=== PATIENT | male | born 1995 | race Two or more races ===

== ENCOUNTER 2017-07-21 19:16 | Inpatient (IN) | payer MEDICAID ==
[2017-07-21] MEDS ORDERED: NS 1,000 ML IV ONE (20:58)
[2017-07-21] MEDS ORDERED: ONDANSETRON 4 MG/2 ML VIAL IVP ONE (20:58)
[2017-07-21 21:18] LABS: % IMMATURE GRANULYOCYTES 0.6 % (0.0-1.1); ABSOLUTE IMMATURE GRANULOCYTES 0.03 10^3/uL (0.00-0.10); ADD DIFF? NO; ADD MORPH? NO; ADD SCAN? NO; ATYPICAL LYMPHOCYTE FLAG 10 (0-99); FRAGMENT RBC FLAG 0 (0-99); HEMATOCRIT 34.5 % (40.0-51.0); HEMOGLOBIN 11.7 g/dL (13.7-17.5); LEFT SHIFT FLG 20 (0-99); LIPEMIA HEMOLYSIS FLAG 90 (0-99); MEAN CELL HEMOGLOBIN 28.7 pg (27.9-34.1); MEAN CELL HEMOGLOBIN CONCENTR. 33.9 g/dL (32.4-36.7); MEAN CELL VOLUME 84.8 fL (81.5-99.8); MEAN PLATELET VOLUME 10.5 fL (8.7-11.7); PLATELET CLUMPS FLAG 0 (0-99); PLATELET COUNT 152 10^3/uL (150-400); RED BLOOD CELL COUNT 4.07 10^6/uL (4.40-6.38); RED CELL DISTRIBUTION WIDTH 11.7 % (11.5-15.2)
[2017-07-21 21:30] LABS: ALANINE AMINOTRANSFERASE 27 IU/L (21-72); ALBUMIN 2.4 g/dL (3.5-5.0); ALKALINE PHOSPHATASE 50 IU/L (38-126); ANION GAP 10 mEq/L (8-16); ASPARTATE AMINOTRANSFERASE 23 IU/L (17-59); BILIRUBIN,TOTAL 0.4 mg/dL (0.1-1.4); BILIRUBIN-CONJUGATED 0.2 mg/dL (0.0-0.5); BILIRUBIN-UNCONJUGATED 0.2 mg/dL (0.0-1.1); CALCIUM 7.9 mg/dL (8.5-10.4); CARBON DIOXIDE 14 mEq/l (22-31); CHLORIDE 111 mEq/L (97-110); CREATININE 6.6 mg/dL (0.7-1.3); GLOMERULAR FILTRATION RATE 11; GLUCOSE 88 mg/dL (70-100); SODIUM 135 mEq/L (134-144); TOTAL PROTEIN 5.1 g/dL (6.3-8.2)
--- NOTE | 2017-07-21 21:50 | EDPHY ---
H & P Time Seen by Provider: 07/21/17 20:41 HPI/ROS: CHIEF COMPLAINT: Nausea, vomiting, lupus flare, joint swelling HISTORY OF PRESENT ILLNESS: 21-year-old male with a history of lupus since middle school presents emergency department reporting that for the last week he has had a flare of his lupus. He tells me that he typically gets headaches, abdominal discomfort, nausea, and vomiting as well as joint swelling when his lupus flares. He currently is not on any medications other than lisinopril and hydrochlorothiazide for hypertension. Patient denies any eye diarrhea, fevers, urinary complaints, chest pain, shortness of breath, illicit drug use, smoking, or alcohol use. REVIEW OF SYSTEMS: Aside from elements discussed in the HPI, a comprehensive 10-point review of systems was reviewed and is negative. PAST MEDICAL HISTORY: Lupus SOCIAL HISTORY: Nonsmoker. VITAL SIGNS Reviewed by me. GENERAL: Well-developed, well-nourished, resting comfortably in no respiratory distress. HEENT: Atraumatic. Eyes: No icterus, no injection. Mouth: moist mucous membranes. No erythema or lesions. Neck: supple with no adenopathy. LUNGS: Clear to auscultation bilaterally, no wheezes, rhonchi or rales. CARDIAC: Regular rate and rhythm, no rubs, murmurs or gallops. ABDOMEN: Soft, nontender, nondistended, bowel sounds normal. BACK: No CVA tenderness. EXTREMITIES: No trauma. No edema. Range of motion is normal throughout. No obvious swelling about the knees. NEURO: Alert and oriented, grossly nonfocal. SKIN: Warm and dry, no rash. PSYCHIATRIC: Normal mentation, no agitation. Smoking Status: Never smoked Constitutional: Initial Vital Signs Temperature (C) 37 C 07/21/17 19:58 Heart Rate 77 07/21/17 19:58 Respiratory Rate 18 07/21/17 19:58 Blood Pressure 160/94 H 07/21/17 19:58 O2 Sat (%) 100 07/21/17 19:58 O2 Delivery Mode Room Air Allergies/Adverse Reactions: No Known Allergies Allergy (Unverified 07/21/17 19:57) Home Medications: Medication Instructions Recorded Lisinopril/Hctz 10/12.5 mg 07/21/17 Medical Decision Making - Diagnostics EKG Interpretation: 12-LEAD EKG: Please see the full report in Trace Master. My interpretation: Sinus rhythm, ?peaked T waves V3 ED Course/Re-evaluation: 21-year-old male with a history of lupus presents with what he describes as lupus flare characterized by headache, nausea, and joint swelling. Patient had IV placed. Laboratory evaluation is remarkable for a creatinine of 6.6, BUN of 124, potassium of 6.0. On further discussions with the patient he tells me that he has had creatinines as high as 4.4 in the past, but after treatment, typically resolves to the normal range. Patient will be admitted to the medicine service. Dr. Dariusz Marino was consulted. I will also speak to Nephrology. 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 Evaluate and treat as acute renal failure. Would not start high-dose steroids at this point. Differential Diagnosis: Differential diagnoses for the patient's symptom complex was considered including but not limited to dehydration, renal failure, lupus nephritis, gastroenteritis, occult infection. Consult/Admit Bed Type: Dr Marino, [facility] - Data Points Laboratory Results: Laboratory Results 07/21/17 21:10 07/21/17 21:10 07/21/17 07/21/17 21:10 21:10 WBC 5.38 10^3/uL 10^3/uL (3.80-9.50) RBC 4.07 10^6/uL L 10^6/uL (4.40-6.38) Hgb 11.7 g/dL L g/dL (13.7-17.5) Hct 34.5 % L % (40.0-51.0) MCV 84.8 fL fL (81.5-99.8) MCH 28.7 pg pg (27.9-34.1) MCHC 33.9 g/dL g/dL (32.4-36.7) RDW 11.7 % % (11.5-15.2) Plt Count 152 10^3/uL 10^3/uL (150-400) MPV 10.5 fL fL (8.7-11.7) Neut % (Auto) 76.5 % H % (39.3-74.2) Lymph % (Auto) 14.7 % L % (15.0-45.0) [place] % (Auto) 7.4 % % (4.5-13.0) Eos % (Auto) 0.4 % L % (0.6-7.6) Baso % (Auto) 0.4 % % (0.3-1.7) Nucleat RBC Rel Count 0.0 % % (0.0-0.2) Absolute Neuts (auto) 4.12 10^3/uL 10^3/uL (1.70-6.50) Absolute Lymphs (auto) 0.79 10^3/uL L 10^3/uL (1.00-3.00) Absolute Monos (auto) 0.40 10^3/uL 10^3/uL (0.30-0.80) Absolute Eos (auto) 0.02 10^3/uL L 10^3/uL (0.03-0.40) Absolute Basos (auto) 0.02 10^3/uL 10^3/uL (0.02-0.10) Absolute Nucleated RBC 0.00 10^3/uL 10^3/uL (0-0.01) Immature Gran % 0.6 % % (0.0-1.1) Immature Gran # 0.03 10^3/uL 10^3/uL (0.00-0.10) Sodium 135 mEq/L mEq/L (134-144) Potassium 6.0 mEq/L H mEq/L (3.5-5.2) Chloride 111 mEq/L H mEq/L (97-110) Carbon Dioxide 14 mEq/l L mEq/l (22-31) Anion Gap 10 mEq/L mEq/L (8-16) BUN 124 mg/dL H* mg/dL (7-23) Creatinine 6.6 mg/dL H mg/dL (0.7-1.3) Estimated GFR 11 Glucose 88 mg/dL mg/dL (70-100) Calcium 7.9 mg/dL L mg/dL (8.5-10.4) Total Bilirubin 0.4 mg/dL mg/dL (0.1-1.4) Conjugated Bilirubin 0.2 mg/dL mg/dL (0.0-0.5) Unconjugated Bilirubin 0.2 mg/dL mg/dL (0.0-1.1) AST 23 IU/L IU/L (17-59) ALT 27 IU/L IU/L (21-72) Alkaline Phosphatase 50 IU/L IU/L (38-126) Total Protein 5.1 g/dL L g/dL (6.3-8.2) Albumin 2.4 g/dL L g/dL (3.5-5.0) Lipase 410 IU/L H IU/L (23-300) Medications Given: Discontinued Medications Calcium Gluconate (Calcium Gluconate) 1 gm IVP EDNOW ONE Stop: 07/21/17 22:42 Last Admin: 07/21/17 22:49 Dose: 1 gm Sodium Chloride (Ns) 1,000 mls @ 0 mls/hr IV EDNOW ONE; Wide Open PRN Reason: Protocol Stop: 07/21/17 20:59 Last Admin: 07/21/17 21:16 Dose: 1,000 mls Ondansetron HCl (Zofran) 4 mg IVP EDNOW ONE Stop: 07/21/17 20:59 Last Admin: 07/21/17 21:16 Dose: 4 mg Departure - Departure Disposition: [facility] Clinical Impression: Acute renal failure Qualifiers: Acute renal failure type: unspecified Qualified Code(s): N17.9 - Acute kidney failure, unspecified Lupus (systemic lupus erythematosus) Qualifiers: Systemic lupus erythematosus type: unspecified Systemic lupus erythematosus organ involvement: unspecified Qualified Code(s): M32.9 - Systemic lupus erythematosus, unspecified Condition: Fair
--- NOTE | 2017-07-21 22:35 | CPEKG ---
Heart Rate: 67 RR Interval: 896 P-R Interval: 176 QRSD Interval: 90 QT Interval: 396 QTC Interval: 418 P [place]: 76 QRS [place]: 106 T Wave [place]: 66 EKG Severity - OTHERWISE NORMAL ECG - EKG Impression: SINUS RHYTHM EKG Impression: BORDERLINE RIGHT AXIS DEVIATION Electronically Signed By: Alf Boateng 22-Jul-2017 12:21:30
[2017-07-21] MEDS ORDERED: INSULIN REGULAR HUMAN 100 UNIT/ML IVP ONE (22:41)
[2017-07-21] MEDS ORDERED: CALCIUM GLUC 10% 1 GM/10 ML VIAL IVP ONE (22:41)
[2017-07-21 22:55] LABS: COLOR YELLOW; LEUKOCYTE ESTERASE,URINE NEGATIVE (NEGATIVE); NITRITE,URINE NEGATIVE (NEGATIVE)
[2017-07-21 23:01] LABS: BACTERIA 1+ /hpf (NONE SEEN); MUCUS TRACE /lpf (NONE-1+); RBC,URINE 50-182 /hpf (0-3)
[2017-07-21] MEDS ORDERED: ACETAMINOPHEN 325 MG TAB PO PRN (23:56)
[2017-07-21] MEDS ORDERED: ONDANSETRON DISINTEGRATING 4 MG TAB PO PRN (23:56)
[2017-07-21] MEDS ORDERED: SODIUM POLY SULF 15 GM/60 ML BOTTLE PO ONE (23:59)
[2017-07-22] MEDS ORDERED: D10W 250 ML ONCE IV ONE (00:30)
[2017-07-22] MEDS: D50W 25 GM/50 ML SYR IVP ONE ×2 (00:36→00:44)
[2017-07-22] MEDS ORDERED: methylPREDNISolone SOD SUCC 125 MG/2 ML VIAL IVP ONE (00:44)
--- NOTE | 2017-07-22 01:01 | PDCONSULT ---
Teaching Dietitian Note: Chief Complaint: Nausea HPI: The patient is a 21 y/o M with a known h/o SLE nephritis who presented to the ED c/o nausea and overall malaise x 2-3 weeks. He states that he was diagnosed with SLE when he was 12 years old and has been treated for flares several times. His usual flare symptoms, which he is currently having, are nausea, vomiting, joint swelling, and headache. He is treated by Dr. Marcelo at [facility] in [place] and states that he had a renal biopsy in August 2016, for which he was then treated with steroids, FATEMEH inhibitor, and an unknown medication for 2 months that was oral not IV infusion. He does think he took azathioprine earlier in his life. He recalls his Cr going from >5 to a baseline of 0.9mg/dL. He recently started sophomore year at and has not seen a physician since that time because he thought his symptoms may be 2/2 to stress. He denies fever, cough, chills, recent illness, diarrhea and only had one episode of vomiting earlier today. He also notes darker urines and weight gain of 6lbs. Still taking po. He is originally from [place] and has not yet contacted his family. He has never required dialysis. PMH: HTN, SLE nephritis Surgical Hx: None Meds: Lisinopril 10mg daily NKDA Social Hx: Denies smoking, ETOH or drug abuse, currently enrolled at Family Hx: No h/o SLE or renal issues. ROS: Negative 10-point review except as stated above. Objective: Temp Pulse Resp BP Pulse Ox 37.9 C 75 18 145/96 H 97 07/22/17 00:00 07/22/17 00:00 07/22/17 00:00 07/22/17 00:00 07/22/17 00:00 Physical Exam: Gen: NAD, A+Ox3 HEENT: MMM, EOMI intact Neck: No lymphadenopathy Heart: No murmur or rub, RRR Lungs: CTA b/l, no wheezing Abd: Soft, NT, ND Ext: No edema, mildly swollen knees Neuro: NOn-focal, cooperative, normal affect WBC 5.38 10^3/uL (3.80-9.50) 07/21/17 21:10 RBC 4.07 10^6/uL (4.40-6.38) L 07/21/17 21:10 Hgb 11.7 g/dL (13.7-17.5) L 07/21/17 21:10 Hct 34.5 % (40.0-51.0) L 07/21/17 21:10 MCV 84.8 fL (81.5-99.8) 07/21/17 21:10 MCH 28.7 pg (27.9-34.1) 07/21/17 21:10 MCHC 33.9 g/dL (32.4-36.7) 07/21/17 21:10 RDW 11.7 % (11.5-15.2) 07/21/17 21:10 Plt Count 152 10^3/uL (150-400) 07/21/17 21:10 MPV 10.5 fL (8.7-11.7) 07/21/17 21:10 Neut % (Auto) 76.5 % (39.3-74.2) H 07/21/17 21:10 Lymph % (Auto) 14.7 % (15.0-45.0) L 07/21/17 21:10 [place] % (Auto) 7.4 % (4.5-13.0) 07/21/17 21:10 Eos % (Auto) 0.4 % (0.6-7.6) L 07/21/17 21:10 Baso % (Auto) 0.4 % (0.3-1.7) 07/21/17 21:10 Nucleat RBC Rel Count 0.0 % (0.0-0.2) 07/21/17 21:10 Absolute Neuts (auto) 4.12 10^3/uL (1.70-6.50) 07/21/17 21:10 Absolute Lymphs (auto) 0.79 10^3/uL (1.00-3.00) L 07/21/17 21:10 Absolute Monos (auto) 0.40 10^3/uL (0.30-0.80) 07/21/17 21:10 Absolute Eos (auto) 0.02 10^3/uL (0.03-0.40) L 07/21/17 21:10 Absolute Basos (auto) 0.02 10^3/uL (0.02-0.10) 07/21/17 21:10 Absolute Nucleated RBC 0.00 10^3/uL (0-0.01) 07/21/17 21:10 Immature Gran % 0.6 % (0.0-1.1) 07/21/17 21:10 Immature Gran # 0.03 10^3/uL (0.00-0.10) 07/21/17 21:10 Sodium 135 mEq/L (134-144) 07/21/17 21:10 Potassium 6.0 mEq/L (3.5-5.2) H 07/21/17 21:10 Chloride 111 mEq/L (97-110) H 07/21/17 21:10 Carbon Dioxide 14 mEq/l (22-31) L 07/21/17 21:10 Anion Gap 10 mEq/L (8-16) 07/21/17 21:10 BUN 124 mg/dL (7-23) H* 07/21/17 21:10 Creatinine 6.6 mg/dL (0.7-1.3) H 07/21/17 21:10 Estimated GFR 11 07/21/17 21:10 Glucose 88 mg/dL (70-100) 07/21/17 21:10 Calcium 7.9 mg/dL (8.5-10.4) L 07/21/17 21:10 Total Bilirubin 0.4 mg/dL (0.1-1.4) 07/21/17 21:10 Conjugated Bilirubin 0.2 mg/dL (0.0-0.5) 07/21/17 21:10 Unconjugated Bilirubin 0.2 mg/dL (0.0-1.1) 07/21/17 21:10 AST 23 IU/L (17-59) 07/21/17 21:10 ALT 27 IU/L (21-72) 07/21/17 21:10 Alkaline Phosphatase 50 IU/L (38-126) 07/21/17 21:10 Total Protein 5.1 g/dL (6.3-8.2) L 07/21/17 21:10 Albumin 2.4 g/dL (3.5-5.0) L 07/21/17 21:10 Lipase 410 IU/L (23-300) H 07/21/17 21:10 Urine Color YELLOW 07/21/17 22:40 Urine Appearance HAZY 07/21/17 22:40 Urine pH 5.0 (5.0-7.5) 07/21/17 22:40 Ur Specific [place] 1.011 (1.002-1.030) 07/21/17 22:40 Urine Protein 3+ (NEGATIVE) H 07/21/17 22:40 Urine Ketones NEGATIVE (NEGATIVE) 07/21/17 22:40 Urine Blood 3+ (NEGATIVE) H 07/21/17 22:40 Urine Nitrate NEGATIVE (NEGATIVE) 07/21/17 22:40 Urine Bilirubin NEGATIVE (NEGATIVE) 07/21/17 22:40 Urine Urobilinogen NEGATIVE EU (0.2-1.0) 07/21/17 22:40 Ur Leukocyte Esterase NEGATIVE (NEGATIVE) 07/21/17 22:40 Urine RBC 50-182 /hpf (0-3) H 07/21/17 22:40 Urine WBC 5-10 /hpf (0-3) H 07/21/17 22:40 Ur Epithelial Cells TRACE /lpf (NONE-1+) 07/21/17 22:40 Urine Bacteria 1+ /hpf (NONE SEEN) H 07/21/17 22:40 Hyaline Casts 1-5 /lpf (0-1) 07/21/17 22:40 Urine Mucus TRACE /lpf (NONE-1+) 07/21/17 22:40 Urine Glucose NEGATIVE (NEGATIVE) 07/21/17 22:40 Assessment/Plan: The patient is a 21 y/o M who presented with N/V and is found to have SHELDON most likely 2/2 to SLE nephritis. 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 Other etiology includes ATN, alternate acute GN such as PSGN, or less likely pre-renal azotemia or obstruction. SHELDON: -sent Bella, giving fluids to r/o prerenal disease -sent complements, ASO, VICTOR M, DsDNA, will consider other serologies pending results -renal US in case new biopsy needed and to r/o obstruction -solumedrol 125mg IV x 1 now, no evidence of infection -urine culture (WBCs noted) -may need to consider renal biopsy, NPO -contact Dr. Marcelo of [facility] to obtain records in AM Hyperkalemia -some peaked t-waves noted on EKG -insulin/D5 and kayexalate given now -NPO, then renal diet -monitor potassium and telemetry AGMA -most likely 2/2 to renal failure -oral bicarb -check VBG prn -lactate ordered HTN -hold lisinopril -hydralazine prn SBP>160 Anemia: -check iron studies in AM -Hb 11.7 BMD: -phos ordered for am -check PTH, Vit D Hypocalcemia -calcium gluconate given -monitor Consult appreciated, please contact if further questions. Will continue to follow. #[phone]. Sanjiv Blanton DO [facility]
--- NOTE | 2017-07-22 03:00 | PDGENHP ---
History and Physical - Chief Complaint Fatigue - History of Present Illness 21 yo M w/ hx of lupus nephritis presents with 2-3 weeks of fatigue and nausea. He was diagnosed with SLE when he was 12 years old and has had 4 or 5 prior flares in his life. The last flare occurred in August of 2016 and he was treated at [facility] by Dr. Marcelo. He underwent a renal bx at that time. He is usually treated with steroids during his flares, and he thinks he was on an additional immunosuppressant for a few months as well. He does not take daily medication and he also denies other symptoms of SLE (rash, joint paints, ulcers, etc.). He is currently asymptomatic and resting comfortably in bed. History Information - Allergies/Home Medication List Allergies/Adverse Reactions: No Known Allergies Allergy (Unverified 07/21/17 19:57) Home Medications: Lisinopril/Hctz 10/12.5 mg 07/21/17 [Last Taken Unknown] I have personally reviewed and updated: family history, medical history - Past Medical History Additional medical history: Lupus nephritis - Surgical History Additional surgical history: Renal bx in August 2016 - Family History Additional family history: Denies family hx of autoimmune disease - Social History Smoking Status: Never smoked Alcohol Use: None Drug Use: None Review of Systems Review of Systems: ROS: 10pt was reviewed & negative except for what was stated in HPI & below Physical Exam Physical Exam: Temp Pulse Resp BP Pulse Ox 37.9 C 75 18 145/96 H 97 07/22/17 00:00 07/22/17 00:00 07/22/17 00:00 07/22/17 00:00 07/22/17 00:00 Constitutional: no apparent distress, appears nourished Eyes: PERRL, EOMI Ears, Nose, Mouth, Throat: moist mucous membranes, no oral mucosal ulcers Cardiovascular: regular rate and rhythym, no murmur, rub, or gallop Respiratory: no respiratory distress, no rales or rhonchi Gastrointestinal: normoactive bowel sounds, soft, non-tender abdomen Skin: warm, normal color Musculoskeletal: full muscle strength, no muscle tenderness Neurologic: AAOx3, CN II-XII Intact Psychiatric: interacting appropriately, not anxious Lab Data & Imaging Review 07/21/17 21:10 07/21/17 21:10 WBC 5.38 10^3/uL (3.80-9.50) 07/21/17 21:10 RBC 4.07 10^6/uL (4.40-6.38) L 07/21/17 21:10 Hgb 11.7 g/dL (13.7-17.5) L 07/21/17 21:10 Hct 34.5 % (40.0-51.0) L 07/21/17 21:10 MCV 84.8 fL (81.5-99.8) 07/21/17 21:10 MCH 28.7 pg (27.9-34.1) 07/21/17 21:10 MCHC 33.9 g/dL (32.4-36.7) 07/21/17 21:10 RDW 11.7 % (11.5-15.2) 07/21/17 21:10 Plt Count 152 10^3/uL (150-400) 07/21/17 21:10 MPV 10.5 fL (8.7-11.7) 07/21/17 21:10 Neut % (Auto) 76.5 % (39.3-74.2) H 07/21/17 21:10 Lymph % (Auto) 14.7 % (15.0-45.0) L 07/21/17 21:10 [place] % (Auto) 7.4 % (4.5-13.0) 07/21/17 21:10 Eos % (Auto) 0.4 % (0.6-7.6) L 07/21/17 21:10 Baso % (Auto) 0.4 % (0.3-1.7) 07/21/17 21:10 Nucleat RBC Rel Count 0.0 % (0.0-0.2) 07/21/17 21:10 Absolute Neuts (auto) 4.12 10^3/uL (1.70-6.50) 07/21/17 21:10 Absolute Lymphs (auto) 0.79 10^3/uL (1.00-3.00) L 07/21/17 21:10 Absolute Monos (auto) 0.40 10^3/uL (0.30-0.80) 07/21/17 21:10 Absolute Eos (auto) 0.02 10^3/uL (0.03-0.40) L 07/21/17 21:10 Absolute Basos (auto) 0.02 10^3/uL (0.02-0.10) 07/21/17 21:10 Absolute Nucleated RBC 0.00 10^3/uL (0-0.01) 07/21/17 21:10 Immature Gran % 0.6 % (0.0-1.1) 07/21/17 21:10 Immature Gran # 0.03 10^3/uL (0.00-0.10) 07/21/17 21:10 Sodium 135 mEq/L (134-144) 07/21/17 21:10 Potassium 6.0 mEq/L (3.5-5.2) H 07/21/17 21:10 Chloride 111 mEq/L (97-110) H 07/21/17 21:10 Carbon Dioxide 14 mEq/l (22-31) L 07/21/17 21:10 Anion Gap 10 mEq/L (8-16) 07/21/17 21:10 BUN 124 mg/dL (7-23) H* 07/21/17 21:10 Creatinine 6.6 mg/dL (0.7-1.3) H 07/21/17 21:10 Estimated GFR 11 07/21/17 21:10 Glucose 88 mg/dL (70-100) 07/21/17 21:10 Calcium 7.9 mg/dL (8.5-10.4) L 07/21/17 21:10 Total Bilirubin 0.4 mg/dL (0.1-1.4) 07/21/17 21:10 Conjugated Bilirubin 0.2 mg/dL (0.0-0.5) 07/21/17 21:10 Unconjugated Bilirubin 0.2 mg/dL (0.0-1.1) 07/21/17 21:10 AST 23 IU/L (17-59) 07/21/17 21:10 ALT 27 IU/L (21-72) 07/21/17 21:10 Alkaline Phosphatase 50 IU/L (38-126) 07/21/17 21:10 Total Protein 5.1 g/dL (6.3-8.2) L 07/21/17 21:10 Albumin 2.4 g/dL (3.5-5.0) L 07/21/17 21:10 Lipase 410 IU/L (23-300) H 07/21/17 21:10 Urine Color YELLOW 07/21/17 22:40 Urine Appearance HAZY 07/21/17 22:40 Urine pH 5.0 (5.0-7.5) 07/21/17 22:40 Ur Specific [place] 1.011 (1.002-1.030) 07/21/17 22:40 Urine Protein 3+ (NEGATIVE) H 07/21/17 22:40 Urine Ketones NEGATIVE (NEGATIVE) 07/21/17 22:40 Urine Blood 3+ (NEGATIVE) H 07/21/17 22:40 Urine Nitrate NEGATIVE (NEGATIVE) 07/21/17 22:40 Urine Bilirubin NEGATIVE (NEGATIVE) 07/21/17 22:40 Urine Urobilinogen NEGATIVE EU (0.2-1.0) 07/21/17 22:40 Ur Leukocyte Esterase NEGATIVE (NEGATIVE) 07/21/17 22:40 Urine RBC 50-182 /hpf (0-3) H 07/21/17 22:40 Urine WBC 5-10 /hpf (0-3) H 07/21/17 22:40 Ur Epithelial Cells TRACE /lpf (NONE-1+) 07/21/17 22:40 Urine Bacteria 1+ /hpf (NONE SEEN) H 07/21/17 22:40 Hyaline Casts 1-5 /lpf (0-1) 07/21/17 22:40 Urine Mucus TRACE /lpf (NONE-1+) 07/21/17 22:40 Ur Random Creatinine 96.0 mg/dL 07/21/17 22:40 Ur Random Microalbumin > 114.0 mg/dL (0.0-1.6) H 07/21/17 22:40 Ur Random Sodium 57 mEq/L (30-90) 07/21/17 22:40 Ur Albumin/Creat Ratio > 1187.5 mg/g cre 07/21/17 22:40 Urine Glucose NEGATIVE (NEGATIVE) 07/21/17 22:40 EKG Interpretation: Positive for: normal sinsus rhythm, other (Peaked T waves in V2-V4) Assessment & Plan Assessment: 21 yo M w/ hx of lupus nephritis presents with ARF likely 2/2 lupus flare. Plan: 1. Acute renal failure - Serum Cr 6.6 on admission from what patient thinks is a normal baseline. Urine sediment notable for 3+ protein and 3+ blood, which would be consistent with lupus nephritis flare. - Renal U/S - Complements, ASO, VICTOR M, dsDNA, PTH, Vit D ordered - Urine culture sent to rule out infection - Methylpred 125 mg IV x1 - Sodium Bicarb TID - Renal consulted, appreciate assistance - Maintain NPO for possible renal biopsy - Obtain records from [facility] 2. Hyperkalemia - K 6.0 on admission with peaked T waves in V2-V4. Treated with Ca-gluconate, insulin/dextrose, and kayexalate. - Monitor on telemetry - Monitor BMP 3. NAGMA - 2/2 ARF; bicarb TID. 4. Hx of lupus nephritis - Last flare in August of 2016, treated by Dr. Marcelo at [facility]. Not on maintenance medication; reports normal renal baseline. - Acute management as jacques 5. HTN - Related to renal disease. Takes lisinopril/HCTZ daily. Diet - NPO Code - Full Ppx - SCDs Dispo - Admit to inpatient status noting need for IV therapies and possible biopsy
[2017-07-22 05:05] LABS: % IMMATURE GRANULYOCYTES 0.4 % (0.0-1.1); ABSOLUTE IMMATURE GRANULOCYTES 0.02 10^3/uL (0.00-0.10); ADD DIFF? NO; ADD MORPH? NO; ADD SCAN? NO; ATYPICAL LYMPHOCYTE FLAG 20 (0-99); FRAGMENT RBC FLAG 0 (0-99); HEMATOCRIT 34.3 % (40.0-51.0); HEMOGLOBIN 11.4 g/dL (13.7-17.5); LEFT SHIFT FLG 20 (0-99); LIPEMIA HEMOLYSIS FLAG 80 (0-99); MEAN CELL HEMOGLOBIN 28.3 pg (27.9-34.1); MEAN CELL HEMOGLOBIN CONCENTR. 33.2 g/dL (32.4-36.7); MEAN CELL VOLUME 85.1 fL (81.5-99.8); MEAN PLATELET VOLUME 9.9 fL (8.7-11.7); PLATELET CLUMPS FLAG 0 (0-99); PLATELET COUNT 146 10^3/uL (150-400); RED BLOOD CELL COUNT 4.03 10^6/uL (4.40-6.38); RED CELL DISTRIBUTION WIDTH 11.8 % (11.5-15.2)
[2017-07-22 05:23] LABS: CREATININE 6.5 mg/dL (0.7-1.3)
[2017-07-22 05:29] LABS: ANION GAP 11 mEq/L (8-16); CARBON DIOXIDE 12 mEq/l (22-31); CHLORIDE 116 mEq/L (97-110); CREATININE 6.5 mg/dL (0.7-1.3); GLOMERULAR FILTRATION RATE 11; GLUCOSE 128 mg/dL (70-100); MAGNESIUM 2.2 mg/dL (1.6-2.3); SODIUM 139 mEq/L (134-144)
[2017-07-22 05:33] LABS: STREPTOZYME < 25 IU/mL (<=200)
[2017-07-22 05:35] LABS: PTH INTACT NO MINERALS 245.1 pg/ml (10.8-79.4)
[2017-07-22] MEDS: SODIUM BICARBONATE 650 MG TAB PO SCH ×3 (09:58→22:17)
[2017-07-22] MEDS ORDERED: NA BICARBONATE 50 MEQ/50 ML VIAL IV STA (10:30)
--- NOTE | 2017-07-22 10:35 | ASMTCMCOM ---
CM Note CM Note Notes: Met with patient regarding discharge POC. 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 He states he has follow up in November scheduled for his holiday break. Offered information on health services at . Will provide him information on [facility]. He is not anticipated to have discharge needs at this time however will revisit when closer to discharge. Date Signed: 07/22/2017 10:34 AM Electronically Signed By:Roseanne Reynolds RN
[2017-07-22 12:03] LABS: INR 1.04 (0.83-1.16); PROTIME(PATIENT) 13.5 SEC (12.0-15.0)
[2017-07-22 12:04] LABS: APTT 33.3 SEC (23.0-38.0)
[2017-07-22] MEDS ORDERED: FLUMAZENIL 0.5 MG/5 ML MDV IVP ONE (12:20)
[2017-07-22] MEDS ORDERED: MIDAZOLAM 2 MG/2 ML VIAL ONE (12:20)
[2017-07-22] MEDS ORDERED: NALOXONE HCL 0.4 MG/ML INJ ONE (12:20)
[2017-07-22 12:21] LABS: ALBUMIN 2.1 g/dL (3.5-5.0); ANION GAP 10 mEq/L (8-16); CALCIUM 8.3 mg/dL (8.5-10.4); CARBON DIOXIDE 20 mEq/l (22-31); CHLORIDE 109 mEq/L (97-110); CREATININE 6.5 mg/dL (0.7-1.3); GLOMERULAR FILTRATION RATE 11; GLUCOSE 123 mg/dL (70-100); POTASSIUM 5.6 mEq/L (3.5-5.2); SODIUM 139 mEq/L (134-144)
[2017-07-22] MEDS ORDERED: fentaNYL 100 MCG/2 ML INJ ONE (12:21)
--- NOTE | 2017-07-22 12:26 | HOSPPROG ---
Hospitalist Progress Note Assessment/Plan: 21 yo M w/ hx of lupus nephritis presents with ARF likely 2/2 lupus flare. D/W Dr Marino. First encounter, chart reviewed. Plan: 1. Acute renal failure - Serum Cr 6.0 - Urine sediment notable for 3+ protein and 3+ blood, which would be consistent with lupus nephritis flare. - Renal U/S - Complements, ASO, VICTOR M, dsDNA, PTH, Vit D ordered - Urine culture sent to rule out infection - Methylpred 125 mg IV x1 - Sodium Bicarb TID - Renal consulted, appreciate assistance, plan for biopsy - Maintain NPO for renal biopsy - Obtain records from [facility] 2. Hyperkalemia - K 6.0 on admission with peaked T waves in V2-V4. Treated with Ca-gluconate, insulin/dextrose, and kayexalate. - Monitor on telemetry - Monitor BMP 3. NAGMA - 2/2 ARF; bicarb TID. 4. Hx of lupus nephritis - Last flare in August of 2016, treated by Dr. Marcelo at [facility]. Not on maintenance medication; reports normal renal baseline. - Acute management as jacques 5. HTN - Related to renal disease. - Takes lisinopril/HCTZ daily, on hold Diet - NPO Code - Full Ppx - SCDs Dispo - Admit to inpatient status noting need for IV therapies and possible biopsy Subjective: Feeling better today. Still tired. No nausea. Objective: Vital Signs Temp Pulse Resp BP Pulse Ox 36.9 C 56 L 14 122/71 H 97 07/22/17 07:37 07/22/17 11:20 07/22/17 11:20 07/22/17 11:20 07/22/17 11:20 Laboratory Results 07/22/17 04:50 07/21/17 07/22/17 07/23/17 05:59 05:59 05:59 Intake Total 1450 Balance 1450 PT 13.5 SEC (12.0-15.0) 07/22/17 11:40 INR 1.04 (0.83-1.16) 07/22/17 11:40 - Physical Exam Constitutional: no apparent distress, appears nourished, not in pain Eyes: PERRL, anicteric sclera, EOMI Ears, Nose, Mouth, Throat: moist mucous membranes, hearing normal, ears appear normal Cardiovascular: regular rate and rhythym, No JVD, No edema Respiratory: no respiratory distress, no rales or rhonchi, reduced air movement Gastrointestinal: normoactive bowel sounds, No tenderness, No ascites Skin: warm, normal color, No mottled Musculoskeletal: normal joint ROM, no joint effusions, generalized weakness Neurologic: AAOx3 Psychiatric: interacting appropriately, not anxious, not encephalopathic, thought process linear ICD10 Worksheet Patient Problems: Problems Problem Status Onset Acute renal failure Acute Lupus (systemic lupus erythematosus) Acute
[2017-07-22] MEDS ORDERED: 1/2 NS IV SCH ×2 (13:45→14:00)
[2017-07-22] MEDS ORDERED: SODIUM BICARBONATE IV SCH ×2 (13:45→14:00)
[2017-07-22] MEDS ORDERED: D5W IV SCH ×2 (13:45→14:00)
[2017-07-22 14:03] LABS: HEMATOCRIT 30.6 % (40.0-51.0); HEMOGLOBIN 10.5 g/dL (13.7-17.5)
[2017-07-22] MEDS ORDERED: hydrALAZINE 20 MG/ML VIAL IVP PRN (14:03)
[2017-07-22] MEDS ORDERED: NS 1,000 ML IV SCH (14:15)
[2017-07-22] MEDS: methylPREDNISolone SOD SUCC 500 MG in D5W 100 ML IV SCH (14:55)
--- NOTE | 2017-07-22 16:00 | SOAPPROG ---
SOAP Progress Note Assessment/Plan: Pt seen this am, see full H&P for details. Cr remains 6.5, K 6.0. Treated with bicarb today with K down to 5.6, will start on IVFs with bicarb and continue. Pt agreed to renal biopsy, has been through it before and knows risks and benefits. He denied any NSAID use in the past week. He was taken for biopsy but only one sample obtained due to hematoma. I discussed with hospitalist, will continue to monitor H/H closely for now and transfuse as needed, renal US in am. Will start pt on Solumedrol 500mg IV daily x3 days while awaiting biopsy results. [facility] still [facility] for [facility]. Objective: Vital Signs Temp Pulse Resp BP Pulse Ox 36.6 C 54 L 18 140/90 H 93 07/22/17 14:58 07/22/17 14:58 07/22/17 14:58 07/22/17 14:58 07/22/17 14:58 Laboratory Results 07/22/17 13:53 07/22/17 11:40 07/21/17 07/22/17 07/23/17 05:59 05:59 05:59 Intake Total 1450 Balance 1450 PT 13.5 SEC (12.0-15.0) 07/22/17 11:40 INR 1.04 (0.83-1.16) 07/22/17 11:40 ICD10 Worksheet Patient Problems: Problems Problem Status Onset Acute renal failure Acute Lupus (systemic lupus erythematosus) Acute
[2017-07-22 16:20] LABS: HEMOGLOBIN 10.8 g/dL (13.7-17.5)
[2017-07-22 18:03] LABS: HEMATOCRIT 29.4 % (40.0-51.0)
[2017-07-22] MEDS: PANTOPRAZOLE SODIUM 40 MG TAB PO SCH (20:02)
[2017-07-22] MEDS: CALCIUM CARBONATE 500 MG CHEWABLE TAB PO SCH ×2 (20:02→22:18)
[2017-07-22 21:09] LABS: ALBUMIN 2.2 g/dL (3.5-5.0); ANION GAP 11 mEq/L (8-16); CALCIUM 7.6 mg/dL (8.5-10.4); CARBON DIOXIDE 18 mEq/l (22-31); CHLORIDE 106 mEq/L (97-110); CREATININE 6.8 mg/dL (0.7-1.3); GLOMERULAR FILTRATION RATE 11; GLUCOSE 222 mg/dL (70-100); POTASSIUM 4.8 mEq/L (3.5-5.2); SODIUM 135 mEq/L (134-144)
[2017-07-22 21:44] LABS: HEMATOCRIT 29.4 % (40.0-51.0); HEMOGLOBIN 9.9 g/dL (13.7-17.5)
[2017-07-23 01:49] LABS: HEMATOCRIT 28.4 % (40.0-51.0); HEMOGLOBIN 9.8 g/dL (13.7-17.5)
[2017-07-23 07:48] LABS: HEMATOCRIT 29.3 % (40.0-51.0); HEMOGLOBIN 9.9 g/dL (13.7-17.5)
[2017-07-23 08:06] LABS: ALBUMIN 2.1 g/dL (3.5-5.0); ANION GAP 12 mEq/L (8-16); CALCIUM 7.3 mg/dL (8.5-10.4); CARBON DIOXIDE 18 mEq/l (22-31); CHLORIDE 109 mEq/L (97-110); CREATININE 6.7 mg/dL (0.7-1.3); GLOMERULAR FILTRATION RATE 11; GLUCOSE 143 mg/dL (70-100); POTASSIUM 5.4 mEq/L (3.5-5.2); SODIUM 139 mEq/L (134-144)
[2017-07-23] MEDS: methylPREDNISolone SOD SUCC 500 MG in D5W 100 ML IV SCH (08:25)
[2017-07-23] MEDS: CALCIUM CARBONATE 500 MG CHEWABLE TAB PO SCH ×3 (08:25→21:14)
[2017-07-23] MEDS: SODIUM BICARBONATE 650 MG TAB PO SCH ×3 (08:25→21:13)
[2017-07-23] MEDS: PANTOPRAZOLE SODIUM 40 MG TAB PO SCH (08:26)
[2017-07-23] MEDS ORDERED: SODIUM POLYSTYRENE SULF PO ONE (09:01)
[2017-07-23] MEDS ORDERED: SODIUM BICARBONATE 75 MEQ in 1/2 NS 1,000 ML IV SCH (09:15)
--- NOTE | 2017-07-23 09:16 | SOAPPROG ---
SOAP Progress Note Assessment/Plan: Assessment: 1. Presumed flare of lupus nephritis. s/p biopsy yesterday. Results pending. Getting high dose solumedrol. Nonoliguric, but labs are concerning. Discussed probable need for interim dialysis. No urgent need for dialysis, but following acidosis and K. BUN increasing as expected with solumedrol. 2. Hyperglycemia Will remove dextrose from IV. 3. Acidosis Getting bicarb supplement 4. Hyperkalemia Restrict in diet. Give kaexolate. Follow serial labs. Plan: 07/23/17 09:07 Subjective: Doing ok, no complaints. Eating ok, no pain at biopsy site. Objective: Vital Signs Temp Pulse Resp BP Pulse Ox 36.6 C 54 L 18 131/86 H 96 07/23/17 08:00 07/23/17 08:00 07/23/17 08:00 07/23/17 08:00 07/23/17 08:00 Laboratory Results 07/23/17 07:02 07/23/17 07:02 07/22/17 07/23/17 07/24/17 05:59 05:59 05:59 Intake Total 1450 700 Output Total 350 Balance 1450 350 PT 13.5 SEC (12.0-15.0) 07/22/17 11:40 INR 1.04 (0.83-1.16) 07/22/17 11:40 Physical Exam - Physical Exam General Appearance: no apparent distress Respiratory: lungs clear Cardiac/Chest: regular rate, rhythm Skin: normal color Extremities: normal inspection Neuro/Psych: oriented x 3 ICD10 Worksheet Patient Problems: Problems Problem Status Onset Acute renal failure Acute Lupus (systemic lupus erythematosus) Acute
[2017-07-23 12:46] LABS: ALBUMIN 2.1 g/dL (3.5-5.0); ANION GAP 13 mEq/L (8-16); CALCIUM 7.2 mg/dL (8.5-10.4); CARBON DIOXIDE 17 mEq/l (22-31); CHLORIDE 107 mEq/L (97-110); CREATININE 6.5 mg/dL (0.7-1.3); GLOMERULAR FILTRATION RATE 11; GLUCOSE 183 mg/dL (70-100); POTASSIUM 4.8 mEq/L (3.5-5.2); SODIUM 137 mEq/L (134-144)
--- NOTE | 2017-07-23 13:26 | HOSPPROG ---
Hospitalist Progress Note Assessment/Plan: 21 yo M w/ hx of lupus nephritis presents with ARF likely 2/2 lupus flare. Plan: 1. Acute renal failure - -presumed lupsu flare -renal biopsy pending - Renal U/S, small hematoma - Methylpred high dose - Sodium Bicarb - Renal consulted, appreciate assistance - likely need for HD 2. Hyperkalemia - -diet restriction -kaexolate 3. NAGMA - 2/2 ARF; bicarb TID. 4. Hx of lupus nephritis - Last flare in August of 2016, treated by Dr. Marcelo at [facility]. Not on maintenance medication; reports normal renal baseline. 5. HTN - Related to renal disease. - Takes lisinopril/HCTZ daily, on hold Diet - NPO Code - Full Ppx - SCDs Dispo - Admit to inpatient status noting need for IV therapies and possible biopsy Subjective: Feeling really tired. Not eating well. Objective: Vital Signs Temp Pulse Resp BP Pulse Ox 36.8 C 60 17 141/88 H 94 07/23/17 12:00 07/23/17 12:00 07/23/17 12:00 07/23/17 12:00 07/23/17 12:00 Laboratory Results 07/23/17 07:02 07/22/17 07/23/17 07/24/17 05:59 05:59 05:59 Intake Total 1450 700 Output Total 350 Balance 1450 350 PT 13.5 SEC (12.0-15.0) 07/22/17 11:40 INR 1.04 (0.83-1.16) 07/22/17 11:40 - Physical Exam Constitutional: no apparent distress, not in pain Eyes: PERRL, anicteric sclera Ears, Nose, Mouth, Throat: moist mucous membranes, hearing normal Cardiovascular: No JVD, No edema Respiratory: no respiratory distress, no rales or rhonchi Gastrointestinal: normoactive bowel sounds, No tenderness, No ascites Skin: warm, normal color Musculoskeletal: normal joint ROM, no joint effusions Neurologic: AAOx3 Psychiatric: interacting appropriately, not anxious, not encephalopathic ICD10 Worksheet Patient Problems: Problems Problem Status Onset Acute renal failure Acute Lupus (systemic lupus erythematosus) Acute
[2017-07-23 19:17] LABS: ALBUMIN 2.3 g/dL (3.5-5.0); ANION GAP 13 mEq/L (8-16); CALCIUM 7.1 mg/dL (8.5-10.4); CARBON DIOXIDE 19 mEq/l (22-31); CHLORIDE 104 mEq/L (97-110); CREATININE 6.5 mg/dL (0.7-1.3); GLOMERULAR FILTRATION RATE 11; GLUCOSE 124 mg/dL (70-100); POTASSIUM 4.5 mEq/L (3.5-5.2); SODIUM 136 mEq/L (134-144)
[2017-07-24 05:14] LABS: % IMMATURE GRANULYOCYTES 0.4 % (0.0-1.1); ABSOLUTE IMMATURE GRANULOCYTES 0.04 10^3/uL (0.00-0.10); ADD DIFF? NO; ADD MORPH? NO; ADD SCAN? NO; ATYPICAL LYMPHOCYTE FLAG 10 (0-99); FRAGMENT RBC FLAG 0 (0-99); HEMATOCRIT 26.6 % (40.0-51.0); HEMOGLOBIN 9.1 g/dL (13.7-17.5); LEFT SHIFT FLG 20 (0-99); LIPEMIA HEMOLYSIS FLAG 90 (0-99); MEAN CELL HEMOGLOBIN 28.1 pg (27.9-34.1); MEAN CELL HEMOGLOBIN CONCENTR. 34.2 g/dL (32.4-36.7); MEAN CELL VOLUME 82.1 fL (81.5-99.8); PLATELET CLUMPS FLAG 10 (0-99); PLATELET COUNT 159 10^3/uL (150-400); RED BLOOD CELL COUNT 3.24 10^6/uL (4.40-6.38); RED CELL DISTRIBUTION WIDTH 11.8 % (11.5-15.2)
[2017-07-24 05:23] LABS: ALBUMIN 1.9 g/dL (3.5-5.0); ANION GAP 12 mEq/L (8-16); CALCIUM 7.3 mg/dL (8.5-10.4); CARBON DIOXIDE 19 mEq/l (22-31); CHLORIDE 102 mEq/L (97-110); CREATININE 6.4 mg/dL (0.7-1.3); GLOMERULAR FILTRATION RATE 11; GLUCOSE 124 mg/dL (70-100); POTASSIUM 4.4 mEq/L (3.5-5.2); SODIUM 133 mEq/L (134-144)
[2017-07-24] MEDS: SODIUM BICARBONATE 650 MG TAB PO SCH ×3 (09:26→21:28)
[2017-07-24] MEDS: PANTOPRAZOLE SODIUM 40 MG TAB PO SCH (09:26)
[2017-07-24] MEDS: CALCIUM CARBONATE 500 MG CHEWABLE TAB PO SCH ×3 (09:27→21:28)
[2017-07-24] MEDS: methylPREDNISolone SOD SUCC 500 MG in D5W 100 ML IV SCH (10:14)
--- NOTE | 2017-07-24 11:00 | SOAPPROG ---
ANNIE Progress Note Assessment/Plan: Assessment: 1. Diffuse Proliferative Lupus Nephritis Pt's bx showed 12/18 gloms globally sclerosed. He has Class IV AC (both active and chronic)disease with fibrous and cellular crescents, along with ATN. He is going to have significant chronic injury, and should ultimately not need chronic HD yet. However, it is not yet clear whether he will escape acute dialysis. I reviewed treatment plan with him. For now, he will need high dose chronic prednisone. We will also start Mycophenylate at 500 bid and titrate to 1500 bid. Luis reports that he was biopsied last August. He states that he was treated for a period of time, recovered, and then his medications were dc'd by his physicians when he improved (this does not make sense to me...). He has no indication for acute dialysis today, but he may need this prior to DC. Will follow for now. 2. Hyperkalemia Better 3. Acidosis On sodium bicarbonate Plan: 07/23/17 09:07 07/24/17 10:52 Subjective: no complaints Objective: Vital Signs Temp Pulse Resp BP Pulse Ox 36.6 C 55 L 12 130/86 H 95 07/24/17 08:00 07/24/17 08:00 07/24/17 08:00 07/24/17 08:00 07/24/17 08:00 Microbiology 07/21/17 22:40 Urine Culture - Final Urine,Clean Catch Laboratory Results 07/24/17 04:07 07/24/17 04:07 07/23/17 07/24/17 07/25/17 05:59 05:59 05:59 Intake Total 700 350 Output Total 350 1550 Balance 350 -1200 PT 13.5 SEC (12.0-15.0) 07/22/17 11:40 INR 1.04 (0.83-1.16) 07/22/17 11:40 Physical Exam - Physical Exam General Appearance: no apparent distress Respiratory: lungs clear Cardiac/Chest: regular rate, rhythm Extremities: normal inspection Neuro/Psych: oriented x 3 ICD10 Worksheet Patient Problems: Problems Problem Status Onset Acute renal failure Acute Lupus (systemic lupus erythematosus) Acute
[2017-07-24] MEDS: FUROSEMIDE 40 MG TAB PO SCH (11:47)
[2017-07-24] MEDS: MYCOPHENOLATE MOFETIL 250 MG CAP PO SCH ×2 (11:48→21:25)
--- NOTE | 2017-07-24 13:05 | HOSPPROG ---
Hospitalist Progress Note Assessment/Plan: 21 yo M w/ hx of lupus nephritis presents with ARF likely 2/2 lupus flare. Plan: 1. Acute renal failure/Diffuse Proliferative Lupus Nephritis -renal biopsy showed 2/ gloms globally sclerosed. "He has Class IV AC (both active and chronic)disease with fibrous and cellular crescents, along with ATN. He is going to have significant chronic injury, and should ultimately not need chronic HD yet." -may need acute dialysis. -high dose chronic prednisone. -start Mycophenylate at 500 bid and titrate to 1500 bid per nephrology 2. Hyperkalemia - -diet restriction -kaexolate -resolved 3. NAGMA - 2/2 ARF; bicarb TID. 4. Hx of lupus nephritis - Last flare in August of 2016, treated by Dr. Marcelo at [facility]. Not on maintenance medication; -pt reports normal renal baseline off meds however no records found and history doesnt' make sense -SW consult ordered, D/W Lety and Dr Breen 5. HTN - Related to renal disease. - Takes lisinopril/HCTZ daily, on hold Diet - NPO Code - Full Ppx - SCDs Dispo - inpatient status noting need for IV therapies and possible HD Subjective: Feeling ok. Some fluid overload. Objective: Vital Signs Temp Pulse Resp BP Pulse Ox 36.6 C 57 L 16 136/91 H 95 07/24/17 11:37 07/24/17 11:37 07/24/17 11:37 07/24/17 11:37 07/24/17 11:37 Microbiology 07/21/17 22:40 Urine Culture - Final Urine,Clean Catch Laboratory Results 07/24/17 04:07 07/24/17 04:07 07/23/17 07/24/17 07/25/17 05:59 05:59 05:59 Intake Total 700 350 100 Output Total 350 1550 Balance 350 -1200 100 PT 13.5 SEC (12.0-15.0) 07/22/17 11:40 INR 1.04 (0.83-1.16) 07/22/17 11:40 - Physical Exam Constitutional: no apparent distress, appears nourished, not in pain Eyes: PERRL, anicteric sclera, EOMI Ears, Nose, Mouth, Throat: moist mucous membranes, hearing normal, ears appear normal Cardiovascular: regular rate and rhythym, edema, No JVD Respiratory: no respiratory distress, no rales or rhonchi, reduced air movement Gastrointestinal: No tenderness, No ascites, No guarding Skin: warm, normal color, No mottled Musculoskeletal: normal joint ROM, no joint effusions, generalized weakness Neurologic: AAOx3 Psychiatric: interacting appropriately, not anxious, not encephalopathic, thought process linear ICD10 Worksheet Patient Problems: Problems Problem Status Onset Acute renal failure Acute Lupus (systemic lupus erythematosus) Acute
[2017-07-25 05:31] LABS: ALBUMIN 2.1 g/dL (3.5-5.0); ANION GAP 15 mEq/L (8-16); CALCIUM 6.6 mg/dL (8.5-10.4); CARBON DIOXIDE 19 mEq/l (22-31); CHLORIDE 99 mEq/L (97-110); CREATININE 6.5 mg/dL (0.7-1.3); GLOMERULAR FILTRATION RATE 11; GLUCOSE 138 mg/dL (70-100); POTASSIUM 4.7 mEq/L (3.5-5.2); SODIUM 133 mEq/L (134-144)
[2017-07-25 05:32] LABS: % IMMATURE GRANULYOCYTES 0.4 % (0.0-1.1); ABSOLUTE IMMATURE GRANULOCYTES 0.03 10^3/uL (0.00-0.10); ADD DIFF? NO; ADD MORPH? NO; ADD SCAN? NO; ATYPICAL LYMPHOCYTE FLAG 10 (0-99); FRAGMENT RBC FLAG 0 (0-99); HEMATOCRIT 26.6 % (40.0-51.0); HEMOGLOBIN 9.3 g/dL (13.7-17.5); LEFT SHIFT FLG 20 (0-99); LIPEMIA HEMOLYSIS FLAG 90 (0-99); MEAN CELL HEMOGLOBIN 28.8 pg (27.9-34.1); MEAN CELL VOLUME 82.4 fL (81.5-99.8); MEAN PLATELET VOLUME 10.8 fL (8.7-11.7); PLATELET CLUMPS FLAG 0 (0-99); PLATELET COUNT 150 10^3/uL (150-400); RED BLOOD CELL COUNT 3.23 10^6/uL (4.40-6.38); RED CELL DISTRIBUTION WIDTH 11.5 % (11.5-15.2)
[2017-07-25] MEDS: MYCOPHENOLATE MOFETIL 250 MG CAP PO SCH ×2 (07:16→20:04)
[2017-07-25] MEDS: FUROSEMIDE 40 MG TAB PO SCH (08:57)
[2017-07-25] MEDS: predniSONE 20 MG TAB PO SCH (08:57)
[2017-07-25] MEDS: PANTOPRAZOLE SODIUM 40 MG TAB PO SCH (08:57)
[2017-07-25 10:21] LABS: C3 COMPLEMENT COMPONENT 68 mg/dL (75 - 175); C4 COMPLEMENT COMPONENT 16 mg/dL (14 - 40)
--- NOTE | 2017-07-25 10:51 | SOAPPROG ---
SOAP Progress Note Assessment/Plan: Assessment/Plan: SHELDON: Pt has diffuse proliferative lupus nephritis per biopsy done 07/22/17, 12/18 gloms globally sclerosed, class IV AC (both active and chronic) disease with fibrous and cellular crescents, along with ATN. He may continue to improve renal function but unclear if he will need acute vs chronic dialysis at this time. Pt got 3 days of solumedrol with no improvement in Cr. He is quite azotemic due to a combination of renal failure and high dose steroids but still with no uremic symptoms. - Pt on high dose prednisone now. - Pt also started on Cellcept with goal to eventually titrate up to 1500mg BID. - Will continue to monitor for now for HD needs, no plans for HD today but he is very close. Anemia: pt had hematoma develop with biopsy on 07/22/17, Hgb currently stable, will continue to monitor. Metabolic acidosis: will continue sodium bicarb tabs. JACQUELYN: Phos elevated, will give calcium carbonate with meals and continue to monitor. Subjective: No acute events overnight. Pt states that he has no itching, no chest pain, no dyspnea, no N/V. He has some mild swelling in legs but nothing unusual or different. He feels well and has no complaints. Objective: Vital Signs Temp Pulse Resp BP Pulse Ox 36.5 C 47 L 15 154/100 H 99 07/25/17 07:48 07/25/17 07:48 07/25/17 07:48 07/25/17 07:48 07/25/17 07:48 Microbiology 07/21/17 22:40 Urine Culture - Final Urine,Clean Catch Laboratory Results 07/25/17 04:16 07/25/17 04:16 07/24/17 07/25/17 07/26/17 05:59 05:59 05:59 Intake Total 350 2300 Output Total 1550 1300 Balance -1200 1000 PT 13.5 SEC (12.0-15.0) 07/22/17 11:40 INR 1.04 (0.83-1.16) 07/22/17 11:40 General: alert and oriented, no acute distress Eyes; EOMI, PERRL OP: clear CV: RRR Resp: nonlabored respirations on RA Abd; Soft, NT/ND Ext: very trace edema BLE Neuro; CN II-XII grossly intact, no asterixis Psych; cooperative, appropriate mood and affect ICD10 Worksheet Patient Problems: Problems Problem Status Onset Acute renal failure Acute Lupus (systemic lupus erythematosus) Acute
[2017-07-25] MEDS ORDERED: CALCIUM CARBONATE 500 MG CHEWABLE TAB PO SCH (11:00)
[2017-07-25] MEDS: SODIUM BICARBONATE 650 MG TAB PO SCH ×3 (11:39→22:58)
[2017-07-25] MEDS: CALCIUM CARBONATE 500 MG CHEWABLE TAB PO SCH ×2 (11:39→17:56)
[2017-07-25 14:05] LABS: 25-HYDROXY D2 <4.0 ng/mL; 25-HYDROXY D3 9.3 ng/mL; VITAMIN D 25-HYDROXY SERUM 9.3 ng/mL
--- NOTE | 2017-07-25 14:35 | HOSPPROG ---
Hospitalist Progress Note Assessment/Plan: Assessment/Plan: 21 yo M presents with ARF likely 2/2 lupus flare Plan: 1. Acute renal failure in setting of Diffuse Proliferative Lupus Nephritis. Has developed acute uremia and hyperkalemia -may need acute dialysis tomorrow, will require HD cath prior to initiating -high dose chronic prednisone -started Mycophenylate at 500 bid and titrate to 1500 bid per nephrology 2. Hyperkalemia. Acute, patient attentive to diet mgmt -kayexolate 3. Acute metabolic acidosis. 2/2 ARF; bicarb TID 4. Lupus nephritis. Chronic, last flare in August of 2016, treated by Dr. Marcelo at [facility], not on maintenance medication; -pt reports normal renal baseline off meds -SW consult ordered 5. HTN. Chronic, 2/2 renal diase, SBP 130-150 o/n -Rx on hold Diet. Renal Code. Full Ppx. High risk, SCDs, holding pharm given likely procedure tomorrow Dispo. ADD uncertain, requiring daily reassess for HD initiation Subjective: minimal edema, no headache Objective: Vital Signs Temp Pulse Resp BP Pulse Ox 36.4 C 65 19 131/91 H 97 07/25/17 11:55 07/25/17 11:55 07/25/17 11:55 07/25/17 11:55 07/25/17 11:55 Microbiology 07/21/17 22:40 Urine Culture - Final Urine,Clean Catch Laboratory Results 07/25/17 04:16 07/25/17 04:16 07/24/17 07/25/17 07/26/17 05:59 05:59 05:59 Intake Total 350 2300 Output Total 1550 1300 Balance -1200 1000 PT 13.5 SEC (12.0-15.0) 07/22/17 11:40 INR 1.04 (0.83-1.16) 07/22/17 11:40 - Physical Exam Constitutional: no apparent distress, appears nourished, not in pain Cardiovascular: regular rate and rhythym, systolic murmur (I/ at all valves), edema (trace bilat LE), No irregularly irregular, No tachycardia Respiratory: no respiratory distress, no rales or rhonchi, clear to auscultation Gastrointestinal: normoactive bowel sounds, soft, non-tender abdomen, no palpable masses Neurologic: AAOx3, sensation intact bilaterally, No weakness Psychiatric: interacting appropriately, not anxious, not encephalopathic, thought process linear ICD10 Worksheet Patient Problems: Problems Problem Status Onset Acute renal failure Acute Lupus (systemic lupus erythematosus) Acute
--- NOTE | 2017-07-25 15:21 | ASMTCMCOM ---
CM Note CM Note Notes: Pt dialysis needs are TBD, pt may have acute dialysis in hospital. Case management is available for coordination of care if pt needs chronic dialysis. [facility] Data confirmed pt Medicaid is active. CM to follow. Date Signed: 07/25/2017 03:20 PM Electronically Signed By:RAMESH Peters
[2017-07-26 04:57] LABS: % IMMATURE GRANULYOCYTES 0.7 % (0.0-1.1); ABSOLUTE IMMATURE GRANULOCYTES 0.06 10^3/uL (0.00-0.10); ADD DIFF? NO; ADD MORPH? NO; ADD SCAN? NO; ATYPICAL LYMPHOCYTE FLAG 0 (0-99); FRAGMENT RBC FLAG 0 (0-99); HEMATOCRIT 28.3 % (40.0-51.0); HEMOGLOBIN 9.9 g/dL (13.7-17.5); LEFT SHIFT FLG 10 (0-99); LIPEMIA HEMOLYSIS FLAG 90 (0-99); MEAN CELL HEMOGLOBIN 28.4 pg (27.9-34.1); MEAN CELL VOLUME 81.1 fL (81.5-99.8); MEAN PLATELET VOLUME 10.7 fL (8.7-11.7); PLATELET CLUMPS FLAG 0 (0-99); PLATELET COUNT 154 10^3/uL (150-400); RED BLOOD CELL COUNT 3.49 10^6/uL (4.40-6.38); RED CELL DISTRIBUTION WIDTH 11.5 % (11.5-15.2)
[2017-07-26 05:15] LABS: ALBUMIN 2.1 g/dL (3.5-5.0); ANION GAP 13 mEq/L (8-16); CALCIUM 7.1 mg/dL (8.5-10.4); CARBON DIOXIDE 19 mEq/l (22-31); CHLORIDE 99 mEq/L (97-110); CREATININE 6.5 mg/dL (0.7-1.3); GLOMERULAR FILTRATION RATE 11; GLUCOSE 111 mg/dL (70-100); POTASSIUM 4.7 mEq/L (3.5-5.2); SODIUM 131 mEq/L (134-144)
[2017-07-26] MEDS: MYCOPHENOLATE MOFETIL 250 MG CAP PO SCH ×2 (06:42→18:02)
[2017-07-26] MEDS: CALCIUM CARBONATE 500 MG CHEWABLE TAB PO SCH ×3 (09:30→19:05)
[2017-07-26] MEDS: PANTOPRAZOLE SODIUM 40 MG TAB PO SCH (09:32)
[2017-07-26] MEDS: predniSONE 20 MG TAB PO SCH (09:32)
[2017-07-26] MEDS: FUROSEMIDE 40 MG TAB PO SCH (09:32)
--- NOTE | 2017-07-26 10:57 | SOAPPROG ---
SOAP Progress Note Assessment/Plan: Assessment/Plan: SHELDON: Pt has diffuse proliferative lupus nephritis per biopsy done 07/22/17, 12/18 gloms globally sclerosed, class IV AC (both active and chronic) disease with fibrous and cellular crescents, along with ATN. He may continue to improve renal function but unclear if he will need acute vs chronic dialysis at this time. Pt got 3 days of solumedrol with no improvement in Cr. He is quite azotemic due to a combination of renal failure and high dose steroids but still with no uremic symptoms. - Pt on high dose prednisone now. - Pt also started on Cellcept with goal to eventually titrate up to 1500mg BID. - His Cr remains unchanged with worsening azotemia. Discussed with pt, will plan for dialysis catheter placement tomorrow with dialysis unless he makes improvement. - Will recheck renal US. - Will stop Lasix. Anemia: pt had hematoma develop with biopsy on 07/22/17, Hgb currently stable, will continue to monitor. Will recheck renal US. Metabolic acidosis: will continue sodium bicarb tabs. JACQUELYN: Phos elevated, will increase calcium carbonate with meals and continue to monitor. Subjective: No acute events overnight. Pt states he continues to feel well, no chest pain, no dyspnea, good appetite, no N/V, swelling slightly improved. Objective: Vital Signs Temp Pulse Resp BP Pulse Ox 36.8 C 65 18 147/92 H 97 07/26/17 08:00 07/26/17 08:00 07/26/17 08:00 07/26/17 08:00 07/26/17 08:00 Laboratory Results 07/26/17 04:17 07/26/17 04:36 07/25/17 07/26/17 07/27/17 05:59 05:59 05:59 Intake Total 2300 350 Output Total 1300 500 Balance 1000 350 -500 PT 13.5 SEC (12.0-15.0) 07/22/17 11:40 INR 1.04 (0.83-1.16) 07/22/17 11:40 General: alert and oriented, no acute distress Eyes; EOMI, PERRL OP: Clear CV: RRR Resp: nonlabored respirations on RA Abd: Soft, NT Ext: no edema BLE Neuro: CN II-XII grossly intact, no asterixis Psych: cooperative, appropriate mood and affect ICD10 Worksheet Patient Problems: Problems Problem Status Onset Acute renal failure Acute Lupus (systemic lupus erythematosus) Acute
[2017-07-26] MEDS: SODIUM BICARBONATE 650 MG TAB PO SCH ×3 (12:02→23:42)
--- NOTE | 2017-07-26 15:20 | HOSPPROG ---
Hospitalist Progress Note Assessment/Plan: 21 yo M presents with ARF likely 2/2 lupus flare Plan: 1. Acute renal failure in setting of Diffuse Proliferative Lupus Nephritis. Has developed acute uremia and hyperkalemia line in AM for possible HD 07/27 high dose chronic prednisone started Mycophenylate at 500 bid and titrate to 1500 bid per nephrology repeat u/s shows no hematoma extrinsically compressing kidney 2. Hyperkalemia. Acute, patient attentive to diet mgmt kayexolate 3. Acute metabolic acidosis. 2/2 ARF; bicarb TID 4. Lupus nephritis. Chronic, last flare in August of 2016, treated by Dr. Marcelo at [facility], not on maintenance medication; pt reports normal renal baseline off meds SW consult ordered 5. HTN. Chronic, 2/2 renal diase, SBP 130-150 o/n follwo Diet. Renal Code. Full Ppx. High risk, SCDs, holding pharm given likely procedure tomorrow Dispo. ADD uncertain, requiring daily reassess for HD initiation Subjective: case d/w dr smith. u/s neg for large hematoma Objective: Vital Signs Temp Pulse Resp BP Pulse Ox 36.8 C 59 L 16 136/99 H 97 07/26/17 12:00 07/26/17 12:00 07/26/17 12:00 07/26/17 12:00 07/26/17 12:00 Laboratory Results 07/26/17 04:17 07/26/17 04:36 07/25/17 07/26/17 07/27/17 05:59 05:59 05:59 Intake Total 2300 350 Output Total 1300 500 Balance 1000 350 -500 PT 13.5 SEC (12.0-15.0) 07/22/17 11:40 INR 1.04 (0.83-1.16) 07/22/17 11:40 - Physical Exam Constitutional: no apparent distress, appears nourished Eyes: PERRL, anicteric sclera Ears, Nose, Mouth, Throat: moist mucous membranes, hearing normal Cardiovascular: regular rate and rhythym, systolic murmur Respiratory: no respiratory distress, no rales or rhonchi Gastrointestinal: normoactive bowel sounds, soft, non-tender abdomen Genitourinary: no bladder fullness, No martinez in urethra Skin: warm, normal color Musculoskeletal: full muscle strength, no muscle tenderness Neurologic: AAOx3, sensation intact bilaterally ICD10 Worksheet Patient Problems: Problems Problem Status Onset Acute renal failure Acute Lupus (systemic lupus erythematosus) Acute
[2017-07-27 05:32] LABS: INR 0.99 (0.83-1.16)
[2017-07-27 05:38] LABS: % IMMATURE GRANULYOCYTES 0.6 % (0.0-1.1); ABSOLUTE IMMATURE GRANULOCYTES 0.05 10^3/uL (0.00-0.10); ADD DIFF? NO; ADD MORPH? NO; ADD SCAN? NO; ATYPICAL LYMPHOCYTE FLAG 0 (0-99); FRAGMENT RBC FLAG 0 (0-99); HEMATOCRIT 26.7 % (40.0-51.0); HEMOGLOBIN 9.5 g/dL (13.7-17.5); LEFT SHIFT FLG 10 (0-99); LIPEMIA HEMOLYSIS FLAG 90 (0-99); MEAN CELL HEMOGLOBIN 28.5 pg (27.9-34.1); MEAN CELL HEMOGLOBIN CONCENTR. 35.6 g/dL (32.4-36.7); MEAN CELL VOLUME 80.2 fL (81.5-99.8); MEAN PLATELET VOLUME 10.8 fL (8.7-11.7); PLATELET CLUMPS FLAG 10 (0-99); PLATELET COUNT 143 10^3/uL (150-400); RED BLOOD CELL COUNT 3.33 10^6/uL (4.40-6.38); RED CELL DISTRIBUTION WIDTH 11.4 % (11.5-15.2)
[2017-07-27 05:55] LABS: ALBUMIN 1.9 g/dL (3.5-5.0); ANION GAP 11 mEq/L (8-16); CALCIUM 6.8 mg/dL (8.5-10.4); CARBON DIOXIDE 19 mEq/l (22-31); CHLORIDE 99 mEq/L (97-110); CREATININE 6.6 mg/dL (0.7-1.3); GLOMERULAR FILTRATION RATE 11; GLUCOSE 115 mg/dL (70-100); POTASSIUM 4.5 mEq/L (3.5-5.2); SODIUM 129 mEq/L (134-144)
--- NOTE | 2017-07-27 07:51 | SOAPPROG ---
SOAP Progress Note Assessment/Plan: Assessment: 1. SLE nephritis/class IV. BUN 200. Tunneled catheter this am, start dialysis today. Continue prednisone. Increase cellcept to 1g bid. HD again tomorrow. Anticipate eventual recovery. Unclear if has benefits for outpatient dialysis or not. 2. Renal failure 3. Hyperphosphatemia. Dialyze. Continue tums qac. 4. Acidosis. On Na HCO3 tabs. Plan: 07/27/17 07:48 07/27/17 07:52 Subjective: No n/v/fevers/rash or other complaints. Objective: Vital Signs Temp Pulse Resp BP Pulse Ox 36.7 C 77 21 H 126/90 H 96 07/27/17 04:00 07/27/17 04:00 07/27/17 04:00 07/27/17 04:00 07/27/17 04:00 Laboratory Results 07/27/17 04:52 07/27/17 04:52 07/26/17 07/27/17 07/28/17 05:59 05:59 05:59 Intake Total 350 900 Output Total 920 Balance 350 -20 PT 13.0 SEC (12.0-15.0) 07/27/17 04:52 INR 0.99 (0.83-1.16) 07/27/17 04:52 Comfortable young male RRR, no m/g/r CTAB Abdom soft, nt No asterixis Tr LE edema ICD10 Worksheet Patient Problems: Problems Problem Status Onset Acute renal failure Acute Lupus (systemic lupus erythematosus) Acute
[2017-07-27] MEDS: MYCOPHENOLATE MOFETIL 250 MG CAP PO SCH ×4 (08:09→20:38)
[2017-07-27] MEDS: CALCIUM CARBONATE 500 MG CHEWABLE TAB PO SCH ×3 (09:38→17:02)
[2017-07-27] MEDS: PANTOPRAZOLE SODIUM 40 MG TAB PO SCH (09:38)
[2017-07-27] MEDS: predniSONE 20 MG TAB PO SCH ×2 (09:39→14:36)
[2017-07-27] MEDS ORDERED: HEPARIN 50,000 UNIT/10 ML VIAL ONE ×2 (10:25→16:19)
[2017-07-27] MEDS ORDERED: MIDAZOLAM 2 MG/2 ML VIAL ONE (10:54)
[2017-07-27] MEDS ORDERED: fentaNYL 100 MCG/2 ML INJ ONE (10:54)
--- NOTE | 2017-07-27 11:33 | HOSPPROG ---
Hospitalist Progress Note Assessment/Plan: DIAGNOSES: 1. Acute renal failure in setting of Diffuse Proliferative Lupus Nephritis. Has developed acute uremia and hyperkalemia Line placed and hemodialysis started today high dose chronic prednisone started Mycophenylate at 500 bid, now increased to 1000 twice daily, and titrate to 1500 bid per nephrology 2. Hyperkalemia. 3. Acute metabolic acidosis. 2/2 ARF; bicarb TID 4. Lupus nephritis. Chronic, last flare in August of 2016, treated by Dr. Marcelo at [facility], not on maintenance medication; pt reports normal renal baseline off meds SW consult ordered 5. HTN. Chronic, 2/2 renal diase, SBP 130-150 o/n follow This is the 1st dialysis episode for this patient despite multiple episodes of lupus nephritis. So far today he is tolerating his 1st session well. SUBJECTIVE: Had some nausea early this morning resolved now Otherwise feels better overall today, no pain, no fever symptoms OBJECTIVE Vitals reviewed: Mildly hypertensive otherwise stable without fever Exam: alert oriented skin warm dry color ok, dialysis access looks good resps not labored lungs clear BSs heart regular abd soft nondistended nontender, bowel sounds present limbs warm, no edema iv site ok Objective: Vital Signs Temp Pulse Resp BP Pulse Ox 36.6 C 55 L 12 146/96 H 99 07/27/17 08:00 07/27/17 08:00 07/27/17 08:00 07/27/17 08:00 07/27/17 08:00 Laboratory Results 07/27/17 04:52 07/27/17 04:52 07/26/17 07/27/17 07/28/17 06:59 06:59 06:59 Intake Total 350 900 Output Total 920 Balance 350 -20 PT 13.0 SEC (12.0-15.0) 07/27/17 04:52 INR 0.99 (0.83-1.16) 07/27/17 04:52 ICD10 Worksheet Patient Problems: Problems Problem Status Onset Acute renal failure Acute Lupus (systemic lupus erythematosus) Acute
[2017-07-27] MEDS ORDERED: LIDOCAINE 1% 300 MG/30 ML SDV ONE (13:25)
[2017-07-27] MEDS: SODIUM BICARBONATE 650 MG TAB PO SCH ×3 (14:34→22:31)
[2017-07-27] MEDS: ONDANSETRON 4 MG/2 ML VIAL IVP PRN (14:43)
[2017-07-28] MEDS: ONDANSETRON 4 MG/2 ML VIAL IVP PRN ×2 (05:19→22:04)
[2017-07-28 05:28] LABS: ABSOLUTE IMMATURE GRANULOCYTES 0.08 10^3/uL (0.00-0.10); ADD DIFF? NO; ADD MORPH? NO; ADD SCAN? NO; ATYPICAL LYMPHOCYTE FLAG 0 (0-99); FRAGMENT RBC FLAG 0 (0-99); HEMATOCRIT 27.6 % (40.0-51.0); HEMOGLOBIN 9.8 g/dL (13.7-17.5); LEFT SHIFT FLG 10 (0-99); LIPEMIA HEMOLYSIS FLAG 90 (0-99); MEAN CELL HEMOGLOBIN 28.5 pg (27.9-34.1); MEAN CELL HEMOGLOBIN CONCENTR. 35.5 g/dL (32.4-36.7); MEAN CELL VOLUME 80.2 fL (81.5-99.8); MEAN PLATELET VOLUME 10.6 fL (8.7-11.7); PLATELET CLUMPS FLAG 0 (0-99); PLATELET COUNT 138 10^3/uL (150-400); RED BLOOD CELL COUNT 3.44 10^6/uL (4.40-6.38); RED CELL DISTRIBUTION WIDTH 11.3 % (11.5-15.2)
[2017-07-28 05:49] LABS: ANION GAP 8 mEq/L (8-16); CARBON DIOXIDE 23 mEq/l (22-31); CHLORIDE 98 mEq/L (97-110); CREATININE 5.6 mg/dL (0.7-1.3); GLOMERULAR FILTRATION RATE 13; GLUCOSE 92 mg/dL (70-100); POTASSIUM 4.2 mEq/L (3.5-5.2); SODIUM 129 mEq/L (134-144)
[2017-07-28] MEDS: CALCIUM CARBONATE 500 MG CHEWABLE TAB PO SCH ×3 (08:39→18:34)
[2017-07-28] MEDS: predniSONE 20 MG TAB PO SCH (08:41)
[2017-07-28] MEDS: PANTOPRAZOLE SODIUM 40 MG TAB PO SCH (08:41)
--- NOTE | 2017-07-28 09:17 | SOAPPROG ---
SOMILLICENT Progress Note Assessment/Plan: Assessment: 1. SLE nephritis/class IV. Started dialysis yesterday d/t azotemia. Continue prednisone, cellcept 1g bid. If nausea continues will decrease cellcept back to 500mg. HD later this am, again tomorrow. Anticipate eventual recovery. Unclear if has benefits for outpatient dialysis or not. Have asked SW at [facility] to clarify. 2. Renal failure 3. Hyperphosphatemia. Dialyze. Continue tums qac. 4. Acidosis. On Na HCO3 tabs. 5. N/V. Uremia vs dysequilibrium (should be better by now) vs cellcept. Zofran prn, short run of dialysis today. Plan: 07/27/17 07:48 07/27/17 07:52 07/28/17 09:15 Subjective: Had first dialysis yesterday. Vomited afterwards. Vomited x 2 this am. Poor appetite since yesterday. Objective: Vital Signs Temp Pulse Resp BP Pulse Ox 37.0 C 74 18 139/90 H 94 07/28/17 08:00 07/28/17 08:00 07/28/17 08:00 07/28/17 08:00 07/28/17 08:00 Laboratory Results 07/28/17 05:02 07/28/17 05:02 07/27/17 07/28/17 07/29/17 05:59 05:59 05:59 Intake Total 900 638 Output Total 920 425 Balance -20 213 PT 13.0 SEC (12.0-15.0) 07/27/17 04:52 INR 0.99 (0.83-1.16) 07/27/17 04:52 Comfortable R IJ tunneled HD catheter RRR, II/ sys murmur, no g/r Coarse, diminished breath sounds in bases Abdom soft, nt No edema No asterixis ICD10 Worksheet Patient Problems: Problems Problem Status Onset Acute renal failure Acute Lupus (systemic lupus erythematosus) Acute
--- NOTE | 2017-07-28 09:25 | HOSPPROG ---
Hospitalist Progress Note Assessment/Plan: Luis Alfaro is a 21-year-old male who has a history of lupus. He developed acute renal failure. He had stopped taking his CellCept. Today is my 1st encounter with the patient. Chart reviewed. Discussed his care with Dr. Vences. * acute renal failure in the setting of diffuse proliferative lupus nephritis to get dialysis today on CellCept * nausea and vomiting could be caused by the uremia versus high dose CellCept nephrology to decide on CellCept dosing * hyperkalemia resolved/none recently will dc tele monitoring for now to allow more comfort for patient if this increases, will resume monitoring * acidosis on sodium bicarb tablets * hyperphosphatemia on tums qac, should improve with dialysis * SLE nephritis class IV chronic, last flare was in August 2016 he was treated at [facility] * hypertension bp stable this a.m. * anemia due to acute illness/ will follow *Hyponatremia repeat labs in a.m. * plan. To get dialysis today. Will need further evaluation if he can get dialysis in the outpatient setting. 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 Subjective: Luis is having some nausea today/ had two bouts of vomiting this morning. Objective: Vital Signs Temp Pulse Resp BP Pulse Ox 37.0 C 74 18 139/90 H 94 07/28/17 08:00 07/28/17 08:00 07/28/17 08:00 07/28/17 08:00 07/28/17 08:00 Laboratory Results 07/28/17 05:02 07/28/17 05:02 07/27/17 07/28/17 07/29/17 05:59 05:59 05:59 Intake Total 900 638 100 Output Total 920 425 Balance -20 213 100 PT 13.0 SEC (12.0-15.0) 07/27/17 04:52 INR 0.99 (0.83-1.16) 07/27/17 04:52 - Physical Exam Constitutional: uncomfortable Eyes: PERRL Ears, Nose, Mouth, Throat: hearing normal Cardiovascular: regular rate and rhythym Respiratory: no respiratory distress Gastrointestinal: normoactive bowel sounds Skin: warm, No normal color (pale) Musculoskeletal: full muscle strength Neurologic: AAOx3 Psychiatric: interacting appropriately, not anxious ICD10 Worksheet Patient Problems: Problems Problem Status Onset Acute renal failure Acute Lupus (systemic lupus erythematosus) Acute
[2017-07-28] MEDS: SODIUM BICARBONATE 650 MG TAB PO SCH ×3 (12:03→22:07)
--- NOTE | 2017-07-28 12:19 | ASMTCMCOM ---
CM Note CM Note Notes: Pt getting dialysis today, will likely need in outpt setting, CM w/f for any needs, of note pt will need an outpt dialysis clinic that takes Medicaid. Date Signed: 07/28/2017 12:19 PM Electronically Signed By:Reanna Castro RN
[2017-07-28] MEDS: MYCOPHENOLATE MOFETIL 250 MG CAP PO SCH ×2 (14:03→20:16)
[2017-07-28] MEDS ORDERED: HEPARIN 50,000 UNIT/10 ML VIAL ONE (15:14)
[2017-07-29 05:30] LABS: ABSOLUTE IMMATURE GRANULOCYTES 0.08 10^3/uL (0.00-0.10); ADD DIFF? NO; ADD MORPH? NO; ADD SCAN? NO; ATYPICAL LYMPHOCYTE FLAG 0 (0-99); FRAGMENT RBC FLAG 0 (0-99); HEMATOCRIT 25.9 % (40.0-51.0); HEMOGLOBIN 9.2 g/dL (13.7-17.5); LEFT SHIFT FLG 10 (0-99); LIPEMIA HEMOLYSIS FLAG 90 (0-99); MEAN CELL HEMOGLOBIN 28.4 pg (27.9-34.1); MEAN CELL HEMOGLOBIN CONCENTR. 35.5 g/dL (32.4-36.7); MEAN CELL VOLUME 79.9 fL (81.5-99.8); MEAN PLATELET VOLUME 10.6 fL (8.7-11.7); PLATELET CLUMPS FLAG 0 (0-99); PLATELET COUNT 132 10^3/uL (150-400); RED BLOOD CELL COUNT 3.24 10^6/uL (4.40-6.38); RED CELL DISTRIBUTION WIDTH 11.2 % (11.5-15.2)
[2017-07-29 06:29] LABS: ALBUMIN 1.8 g/dL (3.5-5.0); ANION GAP 6 mEq/L (8-16); CALCIUM 7.5 mg/dL (8.5-10.4); CARBON DIOXIDE 27 mEq/l (22-31); CHLORIDE 97 mEq/L (97-110); CREATININE 5.5 mg/dL (0.7-1.3); GLOMERULAR FILTRATION RATE 13; GLUCOSE 88 mg/dL (70-100); POTASSIUM 4.4 mEq/L (3.5-5.2); SODIUM 130 mEq/L (134-144)
[2017-07-29] MEDS: ONDANSETRON 4 MG/2 ML VIAL IVP PRN (07:21)
--- NOTE | 2017-07-29 08:35 | SOAPPROG ---
SOAP Progress Note Assessment/Plan: Assessment/Plan: The patient is a 21 y/o M with a known h/o SLE nephritis who presented with uremia, acidosis, and hyperkalemia. 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 1. SLE nephritis/class IV with SHELDON -Continue prednisone, cellcept 1g bid (will decrease as below) -HD today, will resume Tuesday if needed -access temp TDC -Anticipate eventual recovery, continue to document I/Os -does not have dialysis coverage as an outpatient per LAURA, social work consult to reapply for Medicaid 2. Hyperphosphatemia -Dialyze -Continue tums qac -renal diet 3. Acidosis -dialyze -On Na HCO3 tabs 4. N/V. Uremia vs dysequilibrium -dialysis with mannitol prior -will decrease cellcept back to 500mg BID to see if this helps, get more HD, then increase to 1-1.5g BID as patient tolerates -Zofran prn 5. Anemia -most likely 2/2 to CKD -send iron studies -will dose EPO 6. HTN -BP 150s -will improve with UF on HD -start amlodipine 5mg today, continue to hold home lisinopril with SHELDON 07/29/17 10:39 Subjective: Patient seen on HD. Tolerating ok. Still nauseas and vomiting this AM. Having trouble taking po. Also, states that mother is a resident (not [place] citizen) and was previously under her insurance, however, feels he renewed his medicaid recently. Denies other ROS. Objective: Vital Signs Temp Pulse Resp BP Pulse Ox 37.1 C 77 16 151/92 H 95 07/29/17 08:06 07/29/17 08:06 07/29/17 08:06 07/29/17 08:06 07/29/17 08:06 Laboratory Results 07/29/17 05:19 07/29/17 05:19 07/28/17 07/29/17 07/30/17 05:59 05:59 05:59 Intake Total 638 1100 Output Total 425 450 Balance 213 650 PT 13.0 SEC (12.0-15.0) 07/27/17 04:52 INR 0.99 (0.83-1.16) 07/27/17 04:52 Physical Exam - Physical Exam General Appearance: alert, no apparent distress EENT: PERRL/EOMI, normal ENT inspection Neck: non-tender, supple Respiratory: lungs clear Cardiac/Chest: regular rate, rhythm Abdomen: normal bowel sounds, non-tender, soft Skin: normal color, warm/dry Extremities: non-tender, pedal edema, other (R TDC in place) Neuro/Psych: alert, oriented x 3 ICD10 Worksheet Patient Problems: Problems Problem Status Onset Acute renal failure Acute Lupus (systemic lupus erythematosus) Acute
--- NOTE | 2017-07-29 09:30 | HOSPPROG ---
Hospitalist Progress Note Assessment/Plan: Luis Alfaro is a 21-year-old male who has a history of lupus. He developed acute renal failure. He had stopped taking his CellCept. * acute renal failure in the setting of diffuse proliferative lupus nephritis to get dialysis today on CellCept and prednisone slowly improving * nausea and vomiting could be caused by the uremia versus high dose CellCept only occurring in the morning/better * hyperkalemia resolved/none recently will dc tele monitoring for now to allow more comfort for patient if this increases, will resume monitoring * acidosis on sodium bicarb tablets * hyperphosphatemia on tums qac, should improve with dialysis * SLE nephritis class IV chronic, last flare was in August 2016 he was treated at [facility] * hypertension bp stable this a.m. * anemia due to acute illness/ will follow Epogen added *Hyponatremia Na is 130 * plan. per the relay worker the patient does not have dialysis coverage in the outpatient setting Subjective: Luis is feeling better this afternoon. Objective: Vital Signs Temp Pulse Resp BP Pulse Ox 37.1 C 77 16 151/92 H 95 07/29/17 08:06 07/29/17 08:06 07/29/17 08:06 07/29/17 08:06 07/29/17 08:06 Laboratory Results 07/29/17 05:19 07/29/17 05:19 07/28/17 07/29/17 07/30/17 05:59 05:59 05:59 Intake Total 638 1100 Output Total 425 450 Balance 213 650 PT 13.0 SEC (12.0-15.0) 07/27/17 04:52 INR 0.99 (0.83-1.16) 07/27/17 04:52 - Physical Exam Constitutional: no apparent distress, not in pain Eyes: PERRL Ears, Nose, Mouth, Throat: hearing normal Respiratory: no respiratory distress Skin: warm Musculoskeletal: full muscle strength Neurologic: AAOx3 Psychiatric: interacting appropriately ICD10 Worksheet Patient Problems: Problems Problem Status Onset Acute renal failure Acute Lupus (systemic lupus erythematosus) Acute
[2017-07-29 11:19] LABS: % SATURATION 51 % (20-55); TOTAL IRON BINDING CAPACITY 175 ug/dL (260-490)
[2017-07-29] MEDS: predniSONE 20 MG TAB PO SCH (11:34)
[2017-07-29] MEDS: CALCIUM CARBONATE 500 MG CHEWABLE TAB PO SCH ×3 (11:34→18:24)
[2017-07-29] MEDS: PANTOPRAZOLE SODIUM 40 MG TAB PO SCH (11:34)
[2017-07-29] MEDS: SODIUM BICARBONATE 650 MG TAB PO SCH ×3 (11:35→22:08)
[2017-07-29] MEDS: MYCOPHENOLATE MOFETIL 250 MG CAP PO SCH ×3 (11:57→22:09)
[2017-07-29] MEDS ORDERED: HEPARIN 50,000 UNIT/10 ML VIAL ONE (16:30)
--- NOTE | 2017-07-29 17:15 | ASMTCMCOM ---
CM Note CM Note Notes: Spoke w/MULTIPLE DRILL OPERATOR, per rate setter pt will not qualify for outpt dialysis, dc date unclear. BLAS w/f. Date Signed: 07/29/2017 05:14 PM Electronically Signed By:Reanna Castro RN
[2017-07-29] MEDS ORDERED: MYCOPHENOLATE MOFETIL 250 MG CAP PO SCH (21:00)
[2017-07-30 05:57] LABS: ABSOLUTE IMMATURE GRANULOCYTES 0.08 10^3/uL (0.00-0.10); ADD DIFF? NO; ADD MORPH? NO; ADD SCAN? NO; ATYPICAL LYMPHOCYTE FLAG 0 (0-99); FRAGMENT RBC FLAG 0 (0-99); HEMATOCRIT 24.5 % (40.0-51.0); HEMOGLOBIN 8.6 g/dL (13.7-17.5); LEFT SHIFT FLG 10 (0-99); LIPEMIA HEMOLYSIS FLAG 90 (0-99); MEAN CELL HEMOGLOBIN 28.4 pg (27.9-34.1); MEAN CELL HEMOGLOBIN CONCENTR. 35.1 g/dL (32.4-36.7); MEAN CELL VOLUME 80.9 fL (81.5-99.8); MEAN PLATELET VOLUME 11.2 fL (8.7-11.7); PLATELET CLUMPS FLAG 0 (0-99); PLATELET COUNT 144 10^3/uL (150-400); RED BLOOD CELL COUNT 3.03 10^6/uL (4.40-6.38); RED CELL DISTRIBUTION WIDTH 11.3 % (11.5-15.2)
[2017-07-30 06:11] LABS: ALBUMIN 1.8 g/dL (3.5-5.0); ANION GAP 6 mEq/L (8-16); CALCIUM 7.5 mg/dL (8.5-10.4); CARBON DIOXIDE 27 mEq/l (22-31); CHLORIDE 95 mEq/L (97-110); CREATININE 5.5 mg/dL (0.7-1.3); GLOMERULAR FILTRATION RATE 13; GLUCOSE 84 mg/dL (70-100); POTASSIUM 4.5 mEq/L (3.5-5.2); SODIUM 128 mEq/L (134-144)
[2017-07-30] MEDS: CALCIUM CARBONATE 500 MG CHEWABLE TAB PO SCH ×3 (08:54→18:37)
[2017-07-30] MEDS: MYCOPHENOLATE MOFETIL 250 MG CAP PO SCH ×2 (08:54→21:59)
[2017-07-30] MEDS: amLODIPine BESYLATE 5 MG TAB PO SCH (08:55)
[2017-07-30] MEDS: predniSONE 20 MG TAB PO SCH (08:55)
[2017-07-30] MEDS: PANTOPRAZOLE SODIUM 40 MG TAB PO SCH (08:55)
--- NOTE | 2017-07-30 10:14 | SOAPPROG ---
SOAP Progress Note Assessment/Plan: Assessment: 1. SLE nephritis/class IV. Started dialysis d/t azotemia. Continue prednisone, cellcept reduced to 500 mg bid d/t nausea. Consider myfortic. Anticipate eventual recovery. Does not have benefits for outpatient dialysis. SW looking into medicaid application. Hold dialysis today/tomorrow to see if he needs to continue this. Need SW to apply with [email or web address] for cellcept through charitable use or likely will not be able to pay for this. 2. Renal failure. See above. 3. Hyperphosphatemia. Dialyze. Continue tums qac. 4. Acidosis. On Na HCO3 tabs. 5. N/V. Improved with decrease in cellcept. Zofran prn. 6. Anemia. Fe studies ok. Likely d/t SLE. No need for tx right now. Plan: 07/27/17 07:48 07/27/17 07:52 07/28/17 09:15 07/30/17 10:12 07/30/17 10:15 Subjective: Dialyzed again yesterday. No problems with treatment. Nausea has improved with reduction in cellcept. Still gets dry heaves in am. Objective: Vital Signs Temp Pulse Resp BP Pulse Ox 36.8 C 68 16 134/92 H 94 07/30/17 07:31 07/30/17 07:31 07/30/17 07:31 07/30/17 08:55 07/30/17 07:31 Laboratory Results 07/30/17 05:25 07/30/17 05:25 07/29/17 07/30/17 07/31/17 05:59 05:59 05:59 Intake Total 1100 250 Output Total 450 1025 Balance 650 -775 PT 13.0 SEC (12.0-15.0) 07/27/17 04:52 INR 0.99 (0.83-1.16) 07/27/17 04:52 Mild periorbital edema RRR, no m/g/r CTAB Abdom soft, nt No edema ICD10 Worksheet Patient Problems: Problems Problem Status Onset Acute renal failure Acute Lupus (systemic lupus erythematosus) Acute
[2017-07-30] MEDS: SODIUM BICARBONATE 650 MG TAB PO SCH ×3 (11:26→22:00)
--- NOTE | 2017-07-30 15:29 | HOSPPROG ---
Hospitalist Progress Note Assessment/Plan: Luis Alfaro is a 21-year-old male who has a history of lupus. He developed acute renal failure. He had stopped taking his CellCept. * acute renal failure in the setting of diffuse proliferative lupus nephritis no dialysis today and tomorrow to see how he does on CellCept and prednisone slowly improving * nausea and vomiting much improved with lower dose of CellCept at 500 mg bid * hyperkalemia resolved/none recently will dc tele monitoring for now to allow more comfort for patient if this increases, will resume monitoring * acidosis on sodium bicarb tablets * hyperphosphatemia on tums qac, should improve with dialysis * SLE nephritis class IV chronic, last flare was in August 2016 he was treated at [facility] * hypertension bp stable this a.m. * anemia due to acute illness/ will follow *Hyponatremia Na is 128 * plan. no coverage of dialysis in OP setting, will need help with CellCept Subjective: Luis is feeling better today/ no nausea or vomiting. Objective: Vital Signs Temp Pulse Resp BP Pulse Ox 36.7 C 70 16 149/97 H 95 07/30/17 11:32 07/30/17 11:32 07/30/17 11:32 07/30/17 11:32 07/30/17 11:32 Laboratory Results 07/30/17 05:25 07/30/17 05:25 07/29/17 07/30/17 07/31/17 05:59 05:59 05:59 Intake Total 1100 250 Output Total 450 1025 Balance 650 -775 PT 13.0 SEC (12.0-15.0) 07/27/17 04:52 INR 0.99 (0.83-1.16) 07/27/17 04:52 - Physical Exam Constitutional: not in pain, chronically ill appearing Eyes: PERRL Ears, Nose, Mouth, Throat: hearing normal Cardiovascular: regular rate and rhythym Respiratory: no respiratory distress Gastrointestinal: normoactive bowel sounds Skin: warm, no fluctuance Neurologic: AAOx3 Psychiatric: interacting appropriately ICD10 Worksheet Patient Problems: Problems Problem Status Onset Acute renal failure Acute Lupus (systemic lupus erythematosus) Acute
[2017-07-31 05:13] LABS: ALBUMIN 1.9 g/dL (3.5-5.0); ANION GAP 7 mEq/L (8-16); CALCIUM 7.5 mg/dL (8.5-10.4); CARBON DIOXIDE 25 mEq/l (22-31); CHLORIDE 96 mEq/L (97-110); CREATININE 6.7 mg/dL (0.7-1.3); GLOMERULAR FILTRATION RATE 11; GLUCOSE 98 mg/dL (70-100); POTASSIUM 4.7 mEq/L (3.5-5.2); SODIUM 128 mEq/L (134-144)
--- NOTE | 2017-07-31 09:50 | HOSPPROG ---
Hospitalist Progress Note Assessment/Plan: Luis Alfaro is a 21-year-old male who has a history of lupus. He developed acute renal failure. He had stopped taking his CellCept. * acute renal failure in the setting of diffuse proliferative lupus nephritis no dialysis scheduled today/creat and bun elevated on CellCept and prednisone * nausea and vomiting much improved with lower dose of CellCept at 500 mg bid had one bout of emesis while I was in room * hyperkalemia resolved/none recently will dc tele monitoring for now to allow more comfort for patient if this increases, will resume monitoring * acidosis on sodium bicarb tablets * hyperphosphatemia on tums qac, should improve with dialysis * SLE nephritis class IV chronic, last flare was in August 2016 he was treated at [facility] * hypertension bp stable this a.m. * anemia due to acute illness/ will follow/trending down *Hyponatremia Na is 128 * plan. no coverage of dialysis in OP setting, will need help with CellCept Subjective: Luis is concerned about his labs. Objective: Vital Signs Temp Pulse Resp BP Pulse Ox 36.9 C 76 14 139/96 H 92 07/31/17 08:00 07/31/17 08:00 07/31/17 08:00 07/31/17 08:00 07/31/17 08:00 Laboratory Results 07/30/17 05:25 07/31/17 04:44 07/30/17 07/31/17 08/01/17 05:59 05:59 05:59 Intake Total 250 850 Output Total 1025 385 Balance -775 465 PT 13.0 SEC (12.0-15.0) 07/27/17 04:52 INR 0.99 (0.83-1.16) 07/27/17 04:52 - Physical Exam Constitutional: chronically ill appearing Eyes: PERRL Ears, Nose, Mouth, Throat: hearing normal Respiratory: no respiratory distress Skin: warm Musculoskeletal: full muscle strength Neurologic: AAOx3 Psychiatric: interacting appropriately, depressed ICD10 Worksheet Patient Problems: Problems Problem Status Onset Acute renal failure Acute Lupus (systemic lupus erythematosus) Acute
[2017-07-31] MEDS: CALCIUM CARBONATE 500 MG CHEWABLE TAB PO SCH ×3 (10:13→18:36)
[2017-07-31] MEDS: amLODIPine BESYLATE 5 MG TAB PO SCH (10:16)
[2017-07-31] MEDS: PANTOPRAZOLE SODIUM 40 MG TAB PO SCH (10:16)
[2017-07-31] MEDS: predniSONE 20 MG TAB PO SCH (10:17)
--- NOTE | 2017-07-31 11:57 | SOAPPROG ---
SOMILLICENT Progress Note Assessment/Plan: Assessment: 1. SLE nephritis/class IV. Started dialysis d/t azotemia. Continue prednisone, cellcept reduced to 500 mg bid d/t nausea. Try 750mg BID. Consider myfortic if not tolerating, unsure about obtaining this as outpatient though. Anticipate eventual recovery. Does not appear to have benefits for outpatient dialysis. SW looking into medicaid. Creat back up. Dialysis tomorrow. Need SW to apply with [employer] for cellcept through charitable use or likely will not be able to pay for this (unless medicaid coverage can pay). Would consider IV cytox if unable to reliably obtain cellcept. 2. Renal failure. See above. 3. Hyperphosphatemia. Dialyze. Continue tums qac. 4. Acidosis. On Na HCO3 tabs. 5. N/V. Improved with decrease in cellcept. Zofran prn. 6. Anemia. Fe studies ok. Likely d/t SLE. No need for tx right now. Plan: 07/27/17 07:48 07/27/17 07:52 07/28/17 09:15 07/30/17 10:12 07/30/17 10:15 07/31/17 11:54 Subjective: Had one episode of n/v this am. Better now. Feels like he could tolerate slight dose increase in cellcept. Very upset about circumstances. Objective: Vital Signs Temp Pulse Resp BP Pulse Ox 36.7 C 67 15 133/88 H 99 07/31/17 11:10 07/31/17 11:10 07/31/17 11:10 07/31/17 11:10 07/31/17 11:10 Laboratory Results 07/30/17 05:25 07/31/17 04:44 07/30/17 07/31/17 08/01/17 05:59 05:59 05:59 Intake Total 250 850 Output Total 1025 385 Balance -775 465 PT 13.0 SEC (12.0-15.0) 07/27/17 04:52 INR 0.99 (0.83-1.16) 07/27/17 04:52 RRR, no m/g/r CTAB Abdom soft, nt 1+ ankle edema ICD10 Worksheet Patient Problems: Problems Problem Status Onset Acute renal failure Acute Lupus (systemic lupus erythematosus) Acute
[2017-07-31] MEDS: SODIUM BICARBONATE 650 MG TAB PO SCH ×3 (12:08→22:59)
[2017-07-31] MEDS ORDERED: NS 100 ML IV PRN (12:11)
[2017-07-31] MEDS: MYCOPHENOLATE MOFETIL 250 MG CAP PO SCH ×2 (12:21→21:35)
--- NOTE | 2017-07-31 12:36 | ASMTCMCOM ---
CM Note CM Note Notes: I spoke at length with hospitalist and follow up specialist regarding d/c planning for patient. The ideal plan would be for him to have outpatient dialysis and be medicated with CellCept. Apparently there has been some confusion about whether or not he has insurance coverage. I spoke with Luis who says he does have Medicaid. He said that he had to renew it a few weeks ago, which might be the source of the confusion. I will have our Medicaid specialist run his benefits tomorrow to make sure that he is current. If he is, he might be able to have outpatient dialysis (according to Dr Vences). He might also be eligible for a co-pay card through [employer] that would help with the cost of the CellCept. If his Medicaid is not active, he will not be able to have outpatient dialysis and we will need to apply to a prescription assistance program for the CellCept. CM will follow up with Medicaid specialist tomorrow and follow up with patient accordingly. Date Signed: 07/31/2017 12:35 PM Electronically Signed By:Lucie Gaming RN
[2017-08-01 05:46] LABS: ALBUMIN 2.1 g/dL (3.5-5.0); ANION GAP 10 mEq/L (8-16); CALCIUM 7.5 mg/dL (8.5-10.4); CARBON DIOXIDE 24 mEq/l (22-31); CHLORIDE 94 mEq/L (97-110); GLOMERULAR FILTRATION RATE 10; GLUCOSE 93 mg/dL (70-100); POTASSIUM 4.5 mEq/L (3.5-5.2); SODIUM 128 mEq/L (134-144)
[2017-08-01] MEDS: predniSONE 20 MG TAB PO SCH (08:59)
[2017-08-01] MEDS: SULFAMETHOX/TMP 800/160 MG 1 TAB PO SCH (08:59)
[2017-08-01] MEDS: amLODIPine BESYLATE 5 MG TAB PO SCH (09:00)
[2017-08-01] MEDS: PANTOPRAZOLE SODIUM 40 MG TAB PO SCH (09:00)
[2017-08-01] MEDS: CALCIUM CARBONATE 500 MG CHEWABLE TAB PO SCH ×3 (09:43→18:30)
--- NOTE | 2017-08-01 09:54 | SOAPPROG ---
SOAP Progress Note Assessment/Plan: Assessment/Plan: SHELDON: Pt has diffuse proliferative lupus nephritis per biopsy done 07/22/17, 12/18 gloms globally sclerosed, class IV AC (both active and chronic) disease with fibrous and cellular crescents, along with ATN. Would expect him to have recovery and not need senior care HD but at this time still requiring acute HD without signs of sufficient renal recovery yet. Pt got 3 days of solumedrol and now is on prednisone and Cellcept. - Continue high dose prednisone for now. - Pt also started on Cellcept with goal to eventually titrate up to 1500mg BID , up to 750mg BID now. - Will do HD today. - Will continue to monitor for recovery. - Appreciate case management assistance with his insurance status to help determine if he can continue dialysis as outpatient. Anemia: pt had hematoma develop with biopsy on 07/22/17, repeat US last week showed nearly complete resolution of this. Will continue to monitor. Metabolic acidosis: will continue sodium bicarb tabs, decrease to 650mg TID. JACQUELYN: Will continue calcium carbonate with meals and continue to monitor. Subjective: No acute events overnight. Pt states that he has some mild swelling in his legs , which he attributes to amlodipine as that has happened before. He feels his UOP is about half his intake. He is disappointed as his Cr uptrending. Objective: Vital Signs Temp Pulse Resp BP Pulse Ox 36.5 C 80 16 144/94 H 98 08/01/17 07:32 08/01/17 07:32 08/01/17 07:32 08/01/17 09:00 08/01/17 07:32 Laboratory Results 07/30/17 05:25 08/01/17 05:17 07/31/17 08/01/17 08/02/17 05:59 05:59 05:59 Intake Total 850 1030 Output Total 385 630 Balance 465 400 PT 13.0 SEC (12.0-15.0) 07/27/17 04:52 INR 0.99 (0.83-1.16) 07/27/17 04:52 General: alert and oriented, no acute distress Eyes; EOMI, PERRL OP: Clear CV: RRR Resp: nonlabored respirations on RA, CTAB Abd: Soft, NT/ND Ext: +trace edema BLE Neuro: CN II-XII grossly intact, no asterixis Psych: cooperative, appropriate mood and affect ICD10 Worksheet Patient Problems: Problems Problem Status Onset Acute renal failure Acute Lupus (systemic lupus erythematosus) Acute
[2017-08-01] MEDS: MYCOPHENOLATE MOFETIL 250 MG CAP PO SCH ×3 (10:31→22:31)
--- NOTE | 2017-08-01 10:41 | HOSPPROG ---
Hospitalist Progress Note Assessment/Plan: Luis Alfaro is a 21-year-old male who has a history of lupus. He developed acute renal failure. He had stopped taking his CellCept. * acute renal failure in the setting of diffuse proliferative lupus nephritis creat and bun trending up/dialysis today on CellCept and prednisone * nausea and vomiting much improved with lower dose of CellCept , now increased to 750 mg bid tolerating this well today * hyperkalemia resolved/none recently will dc tele monitoring for now to allow more comfort for patient if this increases, will resume monitoring * acidosis on sodium bicarb tablets * hyperphosphatemia on tums qac * SLE nephritis class IV chronic, last flare was in August 2016 he was treated at [facility] * hypertension bp stable this a.m. * anemia due to acute illness/ will follow/trending down *Hyponatremia Na is 128 * plan. no coverage of dialysis in OP setting, will need help with CellCept/ will ask CM to re-verify he doesn't have coverage/ patient has medicaid Subjective: Luis is in better spirits today/ no nausea or vomiting/ eating well. Objective: Vital Signs Temp Pulse Resp BP Pulse Ox 36.5 C 80 16 144/94 H 98 08/01/17 07:32 08/01/17 07:32 08/01/17 07:32 08/01/17 09:00 08/01/17 07:32 Laboratory Results 07/30/17 05:25 08/01/17 05:17 07/31/17 08/01/17 08/02/17 05:59 05:59 05:59 Intake Total 850 1030 Output Total 385 630 Balance 465 400 PT 13.0 SEC (12.0-15.0) 07/27/17 04:52 INR 0.99 (0.83-1.16) 07/27/17 04:52 - Physical Exam Constitutional: no apparent distress, appears nourished Eyes: PERRL Ears, Nose, Mouth, Throat: hearing normal Respiratory: no respiratory distress Skin: warm Musculoskeletal: full muscle strength Neurologic: AAOx3 Psychiatric: interacting appropriately, not anxious ICD10 Worksheet Patient Problems: Problems Problem Status Onset Acute renal failure Acute Lupus (systemic lupus erythematosus) Acute
[2017-08-01] MEDS: SODIUM BICARBONATE 650 MG TAB PO SCH ×3 (10:57→22:07)
--- NOTE | 2017-08-01 16:51 | ASMTCMCOM ---
CM Note CM Note Notes: CM faxed over a referral to [facility] in [place]. CM confirmed w/ financial counseling that pt does indeed have Medicaid. CM provided pt w/ phone number for medicaid for him to call to see if cellcept is covered. CM to follow. Date Signed: 08/01/2017 04:50 PM Electronically Signed By:WILI Quispe
[2017-08-01] MEDS ORDERED: HEPARIN 50,000 UNIT/10 ML VIAL ONE (20:50)
[2017-08-02 05:23] LABS: ALBUMIN 1.9 g/dL (3.5-5.0); ANION GAP 5 mEq/L (8-16); CALCIUM 7.5 mg/dL (8.5-10.4); CARBON DIOXIDE 28 mEq/l (22-31); CHLORIDE 93 mEq/L (97-110); CREATININE 5.6 mg/dL (0.7-1.3); GLOMERULAR FILTRATION RATE 13; GLUCOSE 88 mg/dL (70-100); POTASSIUM 4.3 mEq/L (3.5-5.2); SODIUM 126 mEq/L (134-144)
[2017-08-02 05:27] LABS: HEMATOCRIT 23.5 % (40.0-51.0); HEMOGLOBIN 8.2 g/dL (13.7-17.5); MEAN CELL HEMOGLOBIN 27.9 pg (27.9-34.1); MEAN CELL HEMOGLOBIN CONCENTR. 34.9 g/dL (32.4-36.7); MEAN CELL VOLUME 79.9 fL (81.5-99.8); RED BLOOD CELL COUNT 2.94 10^6/uL (4.40-6.38); RED CELL DISTRIBUTION WIDTH 11.2 % (11.5-15.2)
[2017-08-02] MEDS: PANTOPRAZOLE SODIUM 40 MG TAB PO SCH (08:20)
[2017-08-02] MEDS: CALCIUM CARBONATE 500 MG CHEWABLE TAB PO SCH ×3 (08:20→17:48)
[2017-08-02] MEDS: MYCOPHENOLATE MOFETIL 250 MG CAP PO SCH ×2 (08:20→21:38)
[2017-08-02] MEDS: predniSONE 20 MG TAB PO SCH (08:20)
--- NOTE | 2017-08-02 09:36 | SOAPPROG ---
SOAP Progress Note Assessment/Plan: Assessment/Plan: SHELDON: Pt has diffuse proliferative lupus nephritis per biopsy done 07/22/17, 12/18 gloms globally sclerosed, class IV AC (both active and chronic) disease with fibrous and cellular crescents, along with ATN. Would expect him to have recovery and not need jail HD but at this time still requiring acute HD without signs of sufficient renal recovery yet. Pt got 3 days of solumedrol and now is on prednisone and Cellcept. - Continue high dose prednisone for now. - Pt also started on Cellcept with goal to eventually titrate up to 1500mg BID , up to 750mg BID now. - Will check labs tomorrow and determine if he still is requiring acute dialysis. - If still requiring acute dialysis, will do HD here tomorrow and then likely can discharge. - Pt has medicaid and is set up for [facility] as outpatient if needed starting on Tuesday, appreciate assistance from case management. Anemia: pt had hematoma develop with biopsy on 07/22/17, repeat US last week showed nearly complete resolution of this. Will continue to monitor. Metabolic acidosis: will d/c sodium bicarb tabs and continue to monitor. HTN: Will change amlodipine to hydralazine and continue to monitor. Hyponatremia: sodium slowly downtrending, down to 126 today. - Will give 2g salt tabs today. - Will check urine sodium and urine osm. - Can modulate further on HD if needed. - Will continue to monitor. JACQUELYN: Will continue calcium carbonate with meals and continue to monitor. Subjective: No acute events overnight. Pt had HD yesterday with no issues. He states that he still has some swelling in his feet that he attributes to amlodipine. He denies any N/V/D, tolerating meds well. He states he had about 700ml UOP yesterday. Objective: Vital Signs Temp Pulse Resp BP Pulse Ox 36.7 C 82 16 152/97 H 96 08/02/17 07:42 08/02/17 07:42 08/02/17 07:42 08/02/17 07:42 08/02/17 07:42 Laboratory Results 08/02/17 04:53 08/02/17 04:53 08/01/17 08/02/17 08/03/17 05:59 05:59 05:59 Intake Total 1030 1000 Output Total 630 Balance 400 1000 PT 13.0 SEC (12.0-15.0) 07/27/17 04:52 INR 0.99 (0.83-1.16) 07/27/17 04:52 General: alert and oriented, no acute distress Eyes; EOMI, PERRL OP: Clear CV: RRR Resp: CTA bilat, nonlabored respirations on RA Abd; Soft, NT/ND Ext: trace edema BLE Neuro: CN II-XII Grossly intact, no asterixis Psych: cooperative, appropriate mood and affect ICD10 Worksheet Patient Problems: Problems Problem Status Onset Acute renal failure Acute Lupus (systemic lupus erythematosus) Acute
[2017-08-02] MEDS: hydrALAZINE 10 MG TAB PO SCH ×3 (09:46→21:38)
[2017-08-02] MEDS: SODIUM CHLORIDE 1,000 MG TAB PO SCH ×2 (09:46→17:47)
[2017-08-02] MEDS: amLODIPine BESYLATE 5 MG TAB PO SCH (09:46)
--- NOTE | 2017-08-02 11:27 | HOSPPROG ---
Hospitalist Progress Note Assessment/Plan: Luis Alfaro is a 21-year-old male who has a history of lupus. He developed acute renal failure. He had stopped taking his CellCept. * acute renal failure in the setting of diffuse proliferative lupus nephritis creat and bun trending up/dialysis today on CellCept and prednisone * nausea and vomiting/ none today CellCept , now increased to 1000 mg bid tolerating this well today * hyperkalemia resolved/none recently will dc tele monitoring for now to allow more comfort for patient if this increases, will resume monitoring * acidosis on sodium bicarb tablets * hyperphosphatemia on tums qac * SLE nephritis class IV chronic, last flare was in August 2016 he was [facility] * hypertension doesn't like the norvasc due to swelling started on hydralazine * anemia due to acute illness/ will follow/trending down *Hyponatremia Na is 126 * plan. will write script for Cellcept 1000 mg bid/ CM to get authorization, dose increased today to 1000 mg bid/ reviewed his care with Dr Moon. Subjective: Luis is feeling well today. Objective: Vital Signs Temp Pulse Resp BP Pulse Ox 36.9 C 80 16 143/93 H 97 08/02/17 11:19 08/02/17 11:19 08/02/17 11:19 08/02/17 11:19 08/02/17 11:19 Laboratory Results 08/02/17 04:53 08/02/17 04:53 08/01/17 08/02/17 08/03/17 05:59 05:59 05:59 Intake Total 1030 1000 Output Total 630 Balance 400 1000 PT 13.0 SEC (12.0-15.0) 07/27/17 04:52 INR 0.99 (0.83-1.16) 07/27/17 04:52 - Physical Exam Constitutional: no apparent distress, appears nourished, not in pain Eyes: PERRL Ears, Nose, Mouth, Throat: hearing normal Respiratory: no respiratory distress Skin: warm Musculoskeletal: full muscle strength Neurologic: AAOx3 Psychiatric: interacting appropriately ICD10 Worksheet Patient Problems: Problems Problem Status Onset Acute renal failure Acute Lupus (systemic lupus erythematosus) Acute
--- NOTE | 2017-08-02 12:19 | ASMTCMCOM ---
CM Note CM Note Notes: CM consulted w/ FIDELINA Nath and Dr. Moon regarding d/c POC. [facility]'s pharmacy confirmed that pt does not have a copay for cellcept. CM informed pt of this news. CM called [facility] in [place] to inform them there is a tenative discharge for tomorrow and would most likely need dialysis on Tuesday. CM needs to confirm d/c tomorrow w/ Cyndi at [facility] ). CM to follow. Date Signed: 08/02/2017 12:19 PM Electronically Signed By:WILI Quispe
[2017-08-03 05:33] LABS: HEMATOCRIT 22.4 % (40.0-51.0); HEMOGLOBIN 7.9 g/dL (13.7-17.5); MEAN CELL HEMOGLOBIN 28.4 pg (27.9-34.1); MEAN CELL HEMOGLOBIN CONCENTR. 35.3 g/dL (32.4-36.7); MEAN CELL VOLUME 80.6 fL (81.5-99.8); RED BLOOD CELL COUNT 2.78 10^6/uL (4.40-6.38); RED CELL DISTRIBUTION WIDTH 11.1 % (11.5-15.2)
[2017-08-03 05:52] LABS: ANION GAP 8 mEq/L (8-16); CALCIUM 7.6 mg/dL (8.5-10.4); CARBON DIOXIDE 25 mEq/l (22-31); CHLORIDE 96 mEq/L (97-110); CREATININE 6.5 mg/dL (0.7-1.3); GLOMERULAR FILTRATION RATE 11; GLUCOSE 84 mg/dL (70-100); POTASSIUM 4.4 mEq/L (3.5-5.2); SODIUM 129 mEq/L (134-144)
--- NOTE | 2017-08-03 08:34 | SOAPPROG ---
SOAP Progress Note Assessment/Plan: Assessment: 1. SLE nephritis/class IV. Good UOP. Continue cellcept 1 g BID, pred 60mg/d. Titrate cellcept to 1.5 g BID soon. Anticipate eventual recovery. Awaiting acceptance at [facility] from med director. Tentative time MWF 3 pm. Will be admitted as SHELDON. Creat back up. Dialysis today, next Tuesday. Sounds like he qualifies for cellcept outpatient and has no copay. RN at [facility] to call CM here to confirm dialysis - this needs to happen prior to discharge. If all confirmed can d/c today after dialysis. Discussed low K/phos diet. 2. SHELDON. See above. 3. HTN. UF on dialysis. Consider lasix. Increase hydralazine to 20mg TID. 4. Hyperphosphatemia. Change tums to phoslo qac. 5. Acidosis. On Na HCO3 tabs. 6. N/V. Improved. 7. Anemia. Fe studies ok. Likely d/t SLE/cellcept, possibly low epo. No need for tx right now. Give dose of procrit x 1 now. 8. Hyponatremia. Improved. D/c Na tabs. Plan: 07/27/17 07:48 07/27/17 07:52 07/28/17 09:15 07/30/17 10:12 07/30/17 10:15 07/31/17 11:54 08/03/17 08:31 08/03/17 08:34 08/03/17 08:36 08/03/17 08:36 Subjective: Nausea resolved. C/o edema in face/feet. Feet better off amlodipine. Last HD Tuesday. Objective: Vital Signs Temp Pulse Resp BP Pulse Ox 36.6 C 64 14 147/90 H 96 08/03/17 04:00 08/03/17 04:00 08/03/17 04:00 08/03/17 04:00 08/03/17 04:00 Laboratory Results 08/03/17 05:00 08/03/17 05:00 08/02/17 08/03/17 08/04/17 05:59 05:59 05:59 Intake Total 1000 400 Output Total 400 Balance 1000 0 PT 13.0 SEC (12.0-15.0) 07/27/17 04:52 INR 0.99 (0.83-1.16) 07/27/17 04:52 Young Hisp male, NAD RRR, no m/g/r CTAB Abdom soft, nt 1+ LE edema ICD10 Worksheet Patient Problems: Problems Problem Status Onset Acute renal failure Acute Lupus (systemic lupus erythematosus) Acute
[2017-08-03] MEDS ORDERED: EPOETIN ALFA 10,000 UNIT/ML VIAL SC SCH (08:45)
[2017-08-03] MEDS: predniSONE 20 MG TAB PO SCH (08:53)
[2017-08-03] MEDS: SULFAMETHOX/TMP 800/160 MG 1 TAB PO SCH (08:53)
[2017-08-03] MEDS: PANTOPRAZOLE SODIUM 40 MG TAB PO SCH (08:53)
[2017-08-03] MEDS: SODIUM CHLORIDE 1,000 MG TAB PO SCH (08:55)
[2017-08-03] MEDS: CALCIUM CARBONATE 500 MG CHEWABLE TAB PO SCH (08:56)
[2017-08-03] MEDS: CALCIUM ACETATE 667 MG CAP PO SCH ×2 (09:01→11:53)
[2017-08-03] MEDS: hydrALAZINE 10 MG TAB PO SCH ×2 (09:01→15:45)
--- NOTE | 2017-08-03 10:57 | HOSPPROG ---
Hospitalist Progress Note Assessment/Plan: Luis Alfaro is a 21-year-old male who has a history of lupus. He developed acute renal failure. He had stopped taking his CellCept. * acute renal failure in the setting of diffuse proliferative lupus nephritis creat and bun trending up/dialysis today on CellCept and prednisone * nausea and vomiting/ none today CellCept , now increased to 1000 mg bid/tolerating well tolerating this well today * hyperkalemia resolved/none recently will dc tele monitoring for now to allow more comfort for patient if this increases, will resume monitoring * acidosis on sodium bicarb tablets * hyperphosphatemia on PhosLo * SLE nephritis class IV chronic, last flare was in August 2016 he was treated at [facility] * hypertension doesn't like the norvasc due to swelling started on hydralazine * anemia due to acute illness/ will follow/trending down *Hyponatremia Na is 129 * plan.reviewed his care with Dr Vences, will dc after dialysis and to be sure everything is covered Subjective: Luis has no complaints/ anxious to be dc Objective: Vital Signs Temp Pulse Resp BP Pulse Ox 37.1 C 91 12 149/94 H 97 08/03/17 08:00 08/03/17 08:00 08/03/17 08:00 08/03/17 09:01 08/03/17 08:00 Laboratory Results 08/03/17 05:00 08/03/17 05:00 08/02/17 08/03/17 08/04/17 05:59 05:59 05:59 Intake Total 1000 400 Output Total 400 Balance 1000 0 PT 13.0 SEC (12.0-15.0) 07/27/17 04:52 INR 0.99 (0.83-1.16) 07/27/17 04:52 - Physical Exam Constitutional: no apparent distress, appears nourished Eyes: PERRL Ears, Nose, Mouth, Throat: hearing normal Gastrointestinal: normoactive bowel sounds Skin: warm Musculoskeletal: full muscle strength Neurologic: AAOx3 Psychiatric: interacting appropriately ICD10 Worksheet Patient Problems: Problems Problem Status Onset Acute renal failure Acute Lupus (systemic lupus erythematosus) Acute
[2017-08-03 15:42] VITALS: BP 141/86; PULSE 89; RESP 16; TEMP 98.7; O2SAT 98
[2017-08-03] MEDS: MYCOPHENOLATE MOFETIL 250 MG CAP PO SCH (15:45)
--- NOTE | 2017-08-03 15:49 | GDS ---
[f rep st] DISCHARGE SUMMARY DISCHARGE DIAGNOSES: 1. Acute renal failure in the setting of diffuse proliferative lupus nephritis. 2. Nausea and vomiting. 3. Hyperkalemia. 4. Acidosis. 5. Hyperphosphatemia. 6. Systemic lupus erythematosus, nephrotic class 4. 7. Hypertension. 8. Anemia. 9. Hyponatremia. CONSULTATIONS: Dr. Sanjiv Blanton, sr. manager corporate communications. BRIEF HISTORY: The patient is a 21-year-old male with known history of SLE nephritis. He presented to the emergency room with nausea and overall malaise for 2-3 weeks. He was diagnosed with lupus when he was 12 years old and has been treated for flares several times. His usual symptoms are nausea, vomiting , joint swelling, and headaches. He is treated by Dr. Marcelo at [facility] in [place]. He thinks he took azathioprine earlier in his life. He recalls his creatinine going from greater than 5 from his baseline of 0.9. He recently started school at and has not seen a physician because he thought his symptoms were secondary to stress. On admission, it was noted that he had acute kidney injury and was started on steroids. A pelvis ultrasound was performed which showed echogenic kidneys, which can be seen with medical renal disease. He had mild prominence of the renal pelvis without jmaes hydronephrosis. Subsequently, he had a renal biopsy CT on July 22. Diagnosis from the tissue is diffuse proliferative and sclerosing lupus nephritis with acute tubular injury. He was treated with dialysis throughout his stay. He will likely need dialysis in the outpatient setting. He will further follow up with [facility] tomorrow. HOSPITAL COURSE PER PROBLEM: 1. Acute renal failure in the setting of diffuse proliferative lupus nephritis. His creatinine and BUN trended up without dialysis. He will stay on CellCept and prednisone. 2. Nausea and vomiting. He has had none further. It was likely his CellCept dose was increased too quickly, but he is tolerating this at 1000 mg b.i.d. 3. Hyperkalemia, resolved. 4. Acidosis, on sodium bicarb tablets. 5. Hyperphosphatemia, on PhosLo. 6. SLE nephritis, class 4. Will be monitored in the outpatient setting by the nephrology team. 7. Hypertension. He was started on hydralazine. The Norvasc caused significant swelling in his lower extremities. 8. Anemia. This is due to his acute illness. He received Epogen during his stay. 9. Hyponatremia. Sodium is 129. CONDITION AT DISCHARGE: Stable. Blood pressure is 149/94, heart rate is 91, respiratory rate is 12, O2 sats on room air 97%, temperature is 37.1 Celsius. MEDICATIONS AT DISCHARGE: Please see the EMR. DISCHARGE INSTRUCTIONS: 1. To follow up with Thad tomorrow. He has an appointment at 3 p.m. 2. To stay on his medications as ordered. The prednisone will be decreased, per the sr. manager corporate communications. 3. He is on the Bactrim to help avoid any infections while on high-dose steroids. 4. To stay on the CellCept. This dose will likely be increased to 1500 mg b.i.d., but this will be decided by the nephrology team. 5. If he develops fever, chills, chest pain, a sudden increase in weight, to return to the ER. Greater than 30 minutes discharging and coordinating patient's care. Copy requested to: Dr. Red Vences /[id number]/MODL MTDD
[2017-08-03] MEDS ORDERED: HEPARIN 50,000 UNIT/10 ML VIAL ONE (16:00)
--- NOTE | 2017-08-03 16:36 | ASMTCMCOM ---
CM Note CM Note Notes: Pt discharging back to school, CM confirmed dialysis appointment tomorrow at [facility] at 3pm. Medications given and letters for school. CM to call for cab Date Signed: 08/03/2017 04:36 PM Electronically Signed By:Reanna Castro RN
--- NOTE | 2017-08-04 10:06 | ASDISCHSUM ---
Discharge Information Plan Status:New Dialysis Medically Cleared to Leave: Discharge Date:08/03/2017 04:36 PM D/C Disposition:Home, Routine, Self-Care ADT D/C Disposition:Home, Routine, Self-Care Projected Discharge Date:08/03/2017 11:00 AM Transportation at D/C:Cab Voucher Discharge Delay Reason: Follow-Up Date:08/03/2017 11:00 AM Discharge Slot: Final Diagnosis: Placement Information Referral Type:Dialysis Center Referral ID:[id number] Provider Name:[facility] ([id number] D-AP) Address 1:[address] [address] Address 2: City:[place] Selection Factors: State:[place] Patient Contact Information Contact Name:RACHAEL Relationship:Mother Address: Work Phone: City: [facility] Phone: [facility]/Zip Code: Email: Financial Information Financial Class:MD Primary Plan Desc:MED[place] Primary Plan Number:[id number] Secondary Plan Desc: Secondary Plan Number: Assessment Information [facility] CM Progress Note CM Note CM Note Notes: Met with patient regarding discharge POC. 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 He states he has follow up in November scheduled for his holiday break. Offered information on health services at . Will provide him information on [facility]. He is not anticipated to have discharge needs at this time however will revisit when closer to discharge. Date Signed: 07/22/2017 10:34 AM Electronically Signed By:Roseanne Reynolds RN [facility] CM Progress Note CM Note CM Note Notes: Pt dialysis needs are TBD, pt may have acute dialysis in hospital. Case management is available for coordination of care if pt needs chronic dialysis. [facility] Data confirmed pt Medicaid is active. CM to follow. Date Signed: 07/25/2017 03:20 PM Electronically Signed By:RAMESH Peters [facility] CM Progress Note CM Note CM Note Notes: Pt getting dialysis today, will likely need in outpt setting, CM w/f for any needs, of note pt will need an outpt dialysis clinic that takes Medicaid. Date Signed: 07/28/2017 12:19 PM Electronically Signed By:Reanna Castro RN [facility] CM Progress Note CM Note CM Note Notes: Spoke w/NET C DEVELOPER, per job setter pt will not qualify for outpt dialysis, dc date unclear. CM w/f. Date Signed: 07/29/2017 05:14 PM Electronically Signed By:Reanna Castro RN [facility] CM Progress Note CM Note CM Note Notes: I spoke at length with hospitalist and job setter regarding d/c planning for patient. The ideal plan would be for him to have outpatient dialysis and be medicated with CellCept. Apparently there has been some confusion about whether or not he has insurance coverage. I spoke with Luis who says he does have Medicaid. He said that he had to renew it a few weeks ago, which might be the source of the confusion. I will have our Medicaid specialist run his benefits tomorrow to make sure that he is current. If he is, he might be able to have outpatient dialysis (according to Dr Vences). He might also be eligible for a co-pay card through [employer] that would help with the cost of the CellCept. If his Medicaid is not active, he will not be able to have outpatient dialysis and we will need to apply to a prescription assistance program for the CellCept. CM will follow up with Medicaid specialist tomorrow and follow up with patient accordingly. Date Signed: 07/31/2017 12:35 PM Electronically Signed By:Lucie Gaming RN [facility] BLAS Progress Note CM Note CM Note Notes: BLAS faxed over a referral to [facility] in [place]. BLAS confirmed w/ financial counseling that pt does indeed have Medicaid. CM provided pt w/ phone number for medicaid for him to call to see if cellcept is covered. CM to follow. Date Signed: 08/01/2017 04:50 PM Electronically Signed By:WILI Quispe [facility] Progress Note CM Note CM Note Notes: CM consulted w/ FIDELINA Nath and Dr. Moon regarding d/c POC. [facility] confirmed that pt does not have a copay for cellcept. CM informed pt of this news. CM called [facility] in [place] to inform them there is a tenative discharge for tomorrow and would most likely need dialysis on Tuesday. CM needs to confirm d/c tomorrow w/ Cyndi at [facility] ). CM to follow. Date Signed: 08/02/2017 12:19 PM Electronically Signed By:WILI Quispe [facility] Progress Note CM Note CM Note Notes: Pt discharging back to school, CM confirmed dialysis appointment tomorrow at [facility] at 3pm. Medications given and letters for school. CM to call for cab Date Signed: 08/03/2017 04:36 PM Electronically Signed By:Reanna Castro RN Intervention Information
== END 2017-08-03 16:36 | disposition home or self-care (01) | DRG 674 ==
LOC: F3N 23:30 → F3E 07-26 21:45
PROVIDERS: ADMIT Student in an Organized Health Care Education/Training Program; ATTEND Internal Medicine
PROC: 0TB03ZX Excision of Right Kidney, Percutaneous Approach, Diagnostic (ICD-10-PCS; 2017-07-22)
PROC: 02HV33Z Insertion of Infusion Device into Superior Vena Cava, Percutaneous Approach (ICD-10-PCS; 2017-07-27)
PROC: 0JH63XZ Insertion of Tunneled Vascular Access Device into Chest Subcutaneous Tissue and Fascia, Percutaneous Approach (ICD-10-PCS; 2017-07-27)
PROC: 5A1D60Z (ICD-10-PCS; principal; 2017-07-27 12:00)
DX: N17.9 Acute kidney failure, unspecified (principal); M32.14 Glomerular disease in systemic lupus erythematosus; E87.2 Acidosis; E87.1 Hypo-osmolality and hyponatremia; N99.840 Postprocedural hematoma of a genitourinary system organ or structure following a genitourinary system procedure; I15.1 Hypertension secondary to other renal disorders; E87.5 Hyperkalemia; E83.39 Other disorders of phosphorus metabolism; D64.9 Anemia, unspecified
CPT/HCPCS: 82306-90; 86225-90; 86704-90; 88313-90; 88346-90; 96374; G0472; J0610; J0885; J1644; J1815; J2250; J2310; J2405; J2930; J3010

== ENCOUNTER 2017-08-22 17:21 | Inpatient (IN) | payer MEDICAID ==
[2017-08-22] MEDS ORDERED: ONDANSETRON DISINTEGRATING 4 MG TAB PO PRN ×2 (17:44→20:55)
[2017-08-22] MEDS ORDERED: ACETAMINOPHEN 325 MG TAB PO PRN (17:44)
--- NOTE | 2017-08-22 19:19 | PDGENHP ---
History and Physical - Chief Complaint Acute edema - History of Present Illness 22-year-old male presents with acute worsening of chronic edema, located diffusely throughout, most notably in the lower extremities, the abdomen, the upper extremities, with onset of symptoms over the past several days, quantified and characterized as a gain of 5 kg from his dry weight. He has not noted any change in his urine output, and he reports that his oral intake of liquids remains approximately 2 L, consisting mostly of water, tea, milk. He reports no substantial change in his oral solid intake. He reports some associated loose bowel movements, brown consistency, no melanotic/bloody appearance. He otherwise reports he has been taking all of his home medications and has been going to dialysis as scheduled. He reports that dialysis today, 3 kg were removed, and he has otherwise lost 1 kg for reasons that he cannot explain. History Information - Allergies/Home Medication List Allergies/Adverse Reactions: No Known Allergies Allergy (Unverified 07/21/17 19:57) Home Medications: Carvedilol [Coreg (*)] 12.5 mg PO BID 08/22/17 [Last Taken 08/22/17] Mycophenolate Mofetil [Cellcept] 1,500 mg PO BID 08/22/17 [Last Taken 08/22/17] I have personally reviewed and updated: family history, medical history, social history, surgical history - Past Medical History Additional medical history: Lupus nephritis currently dialysis dependent. Hypertension. Anemia of chronic kidney disease - Surgical History Additional surgical history: Renal bx in August 2016 - Family History Additional family history: Denies family hx of autoimmune disease - Social History Smoking Status: Never smoked Alcohol Use: None Drug Use: None Additional social history: Normally independent in his ADLs Review of Systems Review of Systems: ROS: 10pt was reviewed & negative except for what was stated in HPI & below Cardiac: Reports: edema Physical Exam Physical Exam: Constitutional: no apparent distress, appears nourished, not in pain Eyes: PERRL, anicteric sclera, EOMI Ears, Nose, Mouth, Throat: moist mucous membranes, hearing normal, ears appear normal, no oral mucosal ulcers Cardiovascular: systolic murmur (2/6 at all valve locations), edema (2+ bilateral lower extremity edema, some soft tissue edema in the upper extremities ), No irregularly irregular, No tachycardia Respiratory: no respiratory distress, no rales or rhonchi, clear to auscultation Gastrointestinal: normoactive bowel sounds, soft, non-tender abdomen, no palpable masses Skin: other (No erythema, no induration, no ecchymoses at the right chest cath site) Neurologic: AAOx3, sensation intact bilaterally, No weakness, No facial droop Psychiatric: interacting appropriately, not anxious, not encephalopathic, thought process linear Lab Data & Imaging Review 08/22/17 21:22 Assessment & Plan Assessment: 22-year-old male presenting with acutely worsening anemia in the setting of diffuse proliferative lupus nephritis requiring hemodialysis Plan: 1. Anemia. Acute on chronic, new problem, further workup indicated. Most likely secondary to chronic kidney disease but may also have acute exacerbation in the setting of hypovolemia and dilutional effect, mycophenolate, as well as possible upper GI bleed in the setting of steroids -send fecal occult blood test -discussed with Dr. Kwesi Breen, he does not recommend transfusion at this time but repeating his hemoglobin level now and then again in a.m., most likely transfusing with hemodialysis tomorrow 2. Lupus nephritis. Reviewed outside records including discharge summary by Pham Alcaraz from 08/03/2017, further characterizing the patient's condition as diffuse proliferative and sclerosing lupus nephritis with acute tubular injury, receiving steroids, CellCept, Bactrim for prophylaxis -patient will receive 3 days of hemodialysis given his current hypovolemia -will monitor daily labs -continue Bactrim -continue prednisone, hold mycophenolate per Dr. Breen 3. Hypertension. Chronic, secondary to end-stage renal disease, continue hydralazine and titrate medications as needed Diet. Renal Prophylaxis. Low risk patient, SCDs Code. Full Disposition. Anticipated discharge uncertain this time, anticipated length stay greater than 48 hours warranting inpatient admission status for reasonable medical necessity including lupus nephritis with hypovolemia requiring several days of volume removal and hemodialysis, as well as additional workup for acute on chronic anemia.
[2017-08-22 21:32] LABS: % IMMATURE GRANULYOCYTES 0.8 % (0.0-1.1); ABSOLUTE IMMATURE GRANULOCYTES 0.07 10^3/uL (0.00-0.10); ADD DIFF? NO; ADD MORPH? YES; ADD SCAN? NO; ATYPICAL LYMPHOCYTE FLAG 0 (0-99); FRAGMENT RBC FLAG 10 (0-99); LEFT SHIFT FLG 0 (0-99); LIPEMIA HEMOLYSIS FLAG 80 (0-99); MEAN CELL HEMOGLOBIN 29.3 pg (27.9-34.1); MEAN CELL HEMOGLOBIN CONCENTR. 33.5 g/dL (32.4-36.7); MEAN CELL VOLUME 87.3 fL (81.5-99.8); MEAN PLATELET VOLUME 10.3 fL (8.7-11.7); PLATELET CLUMPS FLAG 0 (0-99); PLATELET COUNT 200 10^3/uL (150-400); RED BLOOD CELL COUNT 2.29 10^6/uL (4.40-6.38); RED CELL DISTRIBUTION WIDTH 16.1 % (11.5-15.2)
[2017-08-22 21:38] LABS: HEMOGLOBIN 6.7 g/dL (13.7-17.5)
[2017-08-22] MEDS: hydrALAZINE 10 MG TAB PO SCH (21:46)
[2017-08-22] MEDS: CARVEDILOL 25 MG TAB PO SCH (21:46)
[2017-08-22 22:18] LABS: HYPOCHROMIA 1+; KERATOCYTES 2+; MICROCYTES 2+; PLATELET ESTIMATE ADEQUATE (ADEQ); POLYCHROMASIA 1+; SCHISTOCYTES 1+
[2017-08-23 05:01] LABS: ANION GAP 4 mEq/L (8-16); CALCIUM 7.7 mg/dL (8.5-10.4); CARBON DIOXIDE 27 mEq/l (22-31); CHLORIDE 105 mEq/L (97-110); CREATININE 3.8 mg/dL (0.7-1.3); GLOMERULAR FILTRATION RATE 20; GLUCOSE 85 mg/dL (70-100); MAGNESIUM 1.7 mg/dL (1.6-2.3); POTASSIUM 4.2 mEq/L (3.5-5.2); SODIUM 136 mEq/L (134-144)
[2017-08-23 05:19] LABS: % IMMATURE GRANULYOCYTES 0.5 % (0.0-1.1); ABSOLUTE IMMATURE GRANULOCYTES 0.04 10^3/uL (0.00-0.10); ADD DIFF? NO; ADD MORPH? YES; ADD SCAN? NO; ATYPICAL LYMPHOCYTE FLAG 0 (0-99); FRAGMENT RBC FLAG 10 (0-99); LEFT SHIFT FLG 0 (0-99); LIPEMIA HEMOLYSIS FLAG 80 (0-99); MEAN CELL HEMOGLOBIN 28.6 pg (27.9-34.1); MEAN CELL HEMOGLOBIN CONCENTR. 32.6 g/dL (32.4-36.7); MEAN CELL VOLUME 87.8 fL (81.5-99.8); MEAN PLATELET VOLUME 10.6 fL (8.7-11.7); PLATELET CLUMPS FLAG 0 (0-99); PLATELET COUNT 162 10^3/uL (150-400); RED BLOOD CELL COUNT 1.96 10^6/uL (4.40-6.38); RED CELL DISTRIBUTION WIDTH 16.4 % (11.5-15.2)
[2017-08-23 05:36] LABS: HEMATOCRIT 17.2 % (40.0-51.0); HEMOGLOBIN 5.6 g/dL (13.7-17.5)
[2017-08-23 06:05] LABS: MICROCYTES 1+; PLATELET ESTIMATE ADEQUATE (ADEQ); SCHISTOCYTES 1+
[2017-08-23] MEDS: PANTOPRAZOLE SODIUM 40 MG TAB PO SCH (07:51)
[2017-08-23] MEDS: CALCIUM ACETATE 667 MG CAP PO SCH ×3 (07:51→17:08)
[2017-08-23] MEDS: predniSONE 20 MG TAB PO SCH (07:51)
[2017-08-23] MEDS ORDERED: EPOETIN ALFA 10,000 UNIT/ML VIAL SC SCH (09:30)
--- NOTE | 2017-08-23 10:58 | GCON ---
[f rep st] CONSULTATION NEPHROLOGY CONSULTATION DATE OF CONSULTATION: 08/23/2017 REASON FOR CONSULTATION: Diffuse proliferative lupus nephritis, hypertension, severe anemia. HISTORY OF PRESENT ILLNESS: The patient is a very pleasant 22-year-old with a past history of lupus, who now presents with severe hypertension and anemia. History is obtained through the medical recor ds, the medical staff, and the patient. The patient is a good historian. The patient was first diagnosed with lupus at age 12. Since that time, he has had several flares. P rior to July of this year, his prior flare had been in the fall of 2015. At that time, he under went a renal biopsy at [facility]. The consistency and duration of his immunosuppressive re gimen remain unclear. In July, the patient presented to [facility] with nausea and severe hypertension . The patient was found to be in significant renal failure. He underwent a renal biopsy, which show ed severe diffuse proliferative glomerulonephritis. The patient was bolused with Solu-Medrol 500 mg daily for 3 days, then placed on maintenance dose, 60 mg daily. He was started on mycophenolate. Th is was started at 500 mg and titrated up to 1 g b.i.d. Last Tuesday, this dose had been increased to 1500 mg b.i.d. The patient has had severe renal failure. He is presently dialysis dependent and is dialyzing on a , Tuesday, Tuesday schedule at [facility]. He has been getting weekly labs, which show abiola t his creatinine remains at 7. He does state his urine output has improved. He has remained signifi cantly hypertensive. Attempts have been made to treat this with volume, hydralazine, and recently th e addition and upward titration of beta blockade. In spite of these issues, his hypertension has rem ained quite elevated. I talked to him last weekend. At that time, his blood pressure was around 150 /100. However, upon presentation to the dialysis unit yesterday, his blood pressure was 180/110. We have been following weekly labs. As of 2 weeks ago, his hemoglobin was in the 8s. One week ago, it was in the 7s. As of Tuesday, it had dropped to 6.3. Two weeks ago, the patient had been started on erythropoietin therapy and was receiving 3400 units IV every dialysis treatment. The patient was admitted last evening relating to his severe anemia and hypertension. A repeat hemog lobin this morning is down to 5.6. Fortunately, he is not leukopenic or thrombocytopenic. His diffe rential is notable that there are schistocytes. A path review is pending. He has had some mildly in creased LDH levels as an outpatient. As related to the above findings, we are now asked to assist wi th the patient's renal diagnosis and management. PAST MEDICAL HISTORY: 1. Systemic lupus with diffuse proliferative glomerulonephritis. 2. Dialysis-dependent acute renal failure. 3. Hypertension. PAST SURGICAL HISTORY: Tunneled catheter placement. HOME MEDICATIONS: Mycophenolate 1500 mg b.i.d., calcium acetate 3 tablets t.i.d. with meals, carvedi lol 2.5 mg b.i.d., EPO 10,000 units q.7 days, hydralazine 20 mg t.i.d., Protonix 40 mg a day, prednis one 60 mg daily, Bactrim 1 tablet Tuesday, Tuesday, and Tuesday. FAMILY HISTORY: Negative for autoimmune disease. SOCIAL HISTORY: The patient is from [facility]. He is presently a student at . He does lockett ve Medicaid status. He does not smoke cigarettes or drink alcohol. REVIEW OF SYSTEMS: The patient, in general, states he is feeling okay. He denies fevers, chills, or sweats. He has occasional low-grade dull headaches. He denies visual disturbances. He does not lockett ve rhinitis or a sore throat. He denies cough or shortness of breath. He denies chest pain or palpi tations. He denies abdominal pain. He has episodes of nausea once or twice a week. He has been hav ing loose stools for about 1 week. He denies dysuria. His urine output is good. He has had worseni ng lower extremity edema. He denies significant skin rashes. He does not have numbness in his finge rs or toes. There is no history of diabetes or hypertension. PHYSICAL EXAMINATION: GENERAL: At the time of exam, the patient is alert and oriented, in no appare nt distress. VITAL SIGNS: Temperature 37.1, pulse 88, blood pressure 157/86. EYES: Sclerae clear. OROPHARYNX: Clear. NECK: No lymphadenopathy, thyromegaly. The catheter tunnel and exit site loo k good. LUNGS: Clear to auscultation throughout all lung garcia. CARDIOVASCULAR: Tachycardic with out gallops or rubs. ABDOMEN: Nontender. No organomegaly. AND RECTAL: Deferred. EXTREMITIES: 1 to 2+ ankle edema is noted. INTEGUMENT: Generally clear. NEURO: No focal findings. LABORATORY STUDIES: White count 8.4, hematocrit 5.6, platelet count 162. Sodium 136, potassium 4.2, bicarb 37, creatinine 3.8, calcium 7.7, phosphorus 3.2, magnesium 1.7. IMPRESSION AND PLAN: 1. Severe anemia. The patient has very severe anemia and has even had a drop in his hemoglobin in t he last 24 hours. Several etiologies could be at play, either independently or together. First, the patient could have blood loss. There is currently no evidence of this, though. Next, the patient c ould have anemia from his mycophenolate. I am going to hold his dose temporarily. We will resume at a lower dose. Next, the patient does have renal failure. Certainly, his level of anemia is beyond his renal failure; however, this is contributing. We will continue erythropoietin therapy. Next, th e patient could have autoantibody-mediated hemolytic anemia. His Rayna test and antibody test on in itial type and cross have been negative. Finally, the patient could have an element of microangiopat hic hemolytic anemia, potentially due to his hypertension. We will plan on further lowering his bloo d pressure and monitoring. The patient is presently on dialysis. He is to receive 2 units during di alysis. It appears that the blood is in house and is being delivered shortly. We will continue to m onitor this closely. We may involve Hematology. 2. Systemic lupus. The patient is not having major symptoms relating to this. We will perform marilyn tional serologies, including a lupus anticoagulant, anticardiolipin antibodies, and beta glycoprotein antibodies. We will hold his mycophenolate for now relating to his anemia. We will plan on taperin g his prednisone soon. 3. Hypertension. The patient's volume status will be gradually corrected. He will be dialyzed on a daily basis while in house to help with this. I will add in a calcium channel mellissa. We will con poultry husbandry teacher adding an angiotensin receptor blockade. 4. Loose stools. I do suspect this is related to mycophenolate toxicity, potentially myelin-associa radha glycoprotein (MAG) associated metabolites. These are thought to be dialyzable. Again, daily gertrude lysis should help with this. Thank you for allowing us to participate in this patient's care. We will continue to follow him clos chanel with you. /[id number]/MODL
--- NOTE | 2017-08-23 11:07 | PDMN ---
Medical Necessity Medical necessity: est los >2 mn for acute on chronic edema & acute on chronic anemia, for 3 days HD r/t hypovolemia; comorbid lupus nephritis & htn; per H&P & order 08/22/17
[2017-08-23] MEDS: CARVEDILOL 25 MG TAB PO SCH ×3 (12:00→21:14)
[2017-08-23] MEDS: hydrALAZINE 10 MG TAB PO SCH ×4 (12:00→21:13)
[2017-08-23] MEDS: ONDANSETRON 4 MG/2 ML VIAL IVP PRN ×2 (12:57→17:06)
[2017-08-23 13:03] LABS: HEMATOCRIT 17.4 % (40.0-51.0)
[2017-08-23 13:25] LABS: LACTATE DEHYDROGENASE 1016 IU/L (313-618)
[2017-08-23] MEDS ORDERED: HEPARIN 50,000 UNIT/10 ML VIAL ONE (13:37)
--- NOTE | 2017-08-23 15:50 | GCON ---
[f rep st] CONSULTATION HEMATOLOGY CONSULTATION. HISTORY OF PRESENT ILLNESS: I was asked by Dr. Arredondo and Dr. Breen to evaluate this 22-year-ol d with lupus/lupus nephritis and recent development of a severe anemia. To review, the patient has a history of lupus dating back approximately 10 years. He had intermittent flares controlled with melo roids. Last month, however, he presented with nausea and severe hypertension, was found to be in sig nificant renal failure. 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 He was treated with high-dose Solu-Medrol and then placed on maintenance steroids at 60 mg a day. He was a lso started on Mycophenolate Mofetil, initially started at 500 mg daily and then increased to 1 g b.i .d., and most recently to 1500 mg b.i.d. He has been dialysis dependent. His blood pressure has bee n controlled to some extent with hydralazine and Coreg, although his blood pressure remains quite cristhian vated. He was admitted with increasing fatigue and to evaluate an anemia. In terms of his blood cou nts, when he presented in July, hemoglobins were in the 10-11 range. They have gradually drifte d down into the 8 range as of late July and more recently have been in the 6 range, and his hemo globin on admission today was 5.6, white count is 8000, platelets 162,000. PAST MEDICAL HISTORY: Otherwise unremarkable. He has had a tunneled catheter placed. MEDICATIONS ON ADMISSION: Include mycophenolate 1500 mg b.i.d., calcium, carvedilol, EPO 10,000 unit s q.7 days, hydralazine 20 mg t.i.d., Protonix 40 mg a day, Prednisone 60 mg a day, Bactrim 1 tab Tue, Tuesday, and Tuesday. FAMILY HISTORY: Negative for autoimmune disease. 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 He is a nonsmoker. REVIEW OF SYSTEMS: Negative for 10 systems except as discussed in the HPI, particularly pertinent, h is GI tract has been working well. He denies any sign of GI bleeding. PHYSICAL EXAMINATION: GENERAL: Today, he is a pleasant, alert male. He appears mildly cushingoid. VITAL SIGNS: Blood pressure is 151/94. He is afebrile. Room air sat 96%. HEENT: He is not icter ic. LYMPH NODES: I detect no cervical, supraclavicular, axillary, or inguinal adenopathy. LUNGS: Clear. CARDIAC: Shows faint systolic ejection murmur. ABDOMEN: Benign. There is a tunneled angel ter in his right anterior chest. EXTREMITIES: Show 2+ edema. NEUROLOGIC: Nonfocal. ADDITIONAL LABS: Show that his reticulocyte count is 3.48, LDH is elevated at 1016. AST and bilirub in are normal. Serum ferritin as of 07/29 is 896, iron 89, TIBC 175, iron saturation 51%. Urinalysis shows 3+ protein and 3+ blood. VICTOR M titer in mid July was 1:320 homogeneous. Hepatitis serolog y was negative. Recent chest x-ray showed small bilateral pleural effusions. My understanding is a recent direct Rayna was negative. IMPRESSION: Patient with lupus nephritis and progressive anemia. Certainly, there are many causes o f anemia in this situation. Renal failure could account for this, although this is more severe than we usually see in renal failure. A contributing factor could certainly be anemia of chronic disease related to an acute lupus flare. Medications are a consideration, mycophenolate can cause an anemia, and Dr. Breen has recently held that medication. A question is whether there is ongoing hemolys is, retic count is mildly elevated, but not compensatory with his degree of severe anemia and LDH is also elevated. However, his transaminases and bilirubin are normal at this time. I think there coul d be a component of microangiopathic hemolytic anemia, possibly related to his uncontrolled hypertens ion. Other possible causes of a Rayna negative hemolytic anemia would include thrombotic thrombocyt openic purpura or paroxysmal nocturnal hemoglobinuria, although this would involve giving patient 2 s eparate and rare diagnoses. He does not have gastrointestinal symptoms, but I think we should at [facility] check a stool for occult blood. RECOMMENDATIONS: Pending workup includes serum haptoglobin, complement levels and testing for lupus anticoagulant. I would like to add a DIC panel, repeat his direct Rayna, check for glucose 6 phosph ate deficiency, and check his sedimentation rate. I think it would also be reasonable to check an AD AMTS13 to check for TTP, although I think this is unlikely, and also flow cytometry for CD55 and CD59 to evaluate for PNH. I appreciate the opportunity to see this very pleasant patient in consultation and will continue to f aramis with you. /[id number]/MODL
[2017-08-23] MEDS ORDERED: PROMETHAZINE HCL 25 MG/ML INJ IVP PRN (16:16)
--- NOTE | 2017-08-23 16:16 | HOSPPROG ---
Hospitalist Progress Note Assessment/Plan: # Acute severe Anemia - progressive drop in hgb in past several weeks - Hgb 5.6 this am - schistocytes and tear drop cell visualized on smear last iron sat 07/24 WNL - pt receiving Myfortic in outpt setting oxygen saturations 9% on RA - transfuse 2 Units PRBC's today - Continue Epoetin - consulting HEME for recs related to the possibility of underlying hemolytic process # Lupus Nephritis - requiring HD - EKG (personally reviewed and interpreted) sinus borderline RAD - with no acute STT changes - will receive HD today and x 3 per Nephrology # HTN - uncontrolled - SBP in the 180's - cont home meds - adding amlodipine BID as well # proph - pt ambulating - holding heparin until anemia better understood # diet - renal # dispo - > 2MN as requiring additional diagnostics and HD I have discussed the case with Hematology they will consult and assist with the diagnostics for the patients anemia Subjective: denies Cp or SOB Objective: Vital Signs Temp Pulse Resp BP Pulse Ox 37.1 C 80 14 151/94 H 96 08/23/17 04:36 08/23/17 13:09 08/23/17 13:09 08/23/17 14:00 08/23/17 13:09 Laboratory Results 08/23/17 04:35 08/23/17 04:35 - Physical Exam Constitutional: appears nourished Eyes: anicteric sclera Ears, Nose, Mouth, Throat: moist mucous membranes Cardiovascular: regular rate and rhythym Respiratory: no respiratory distress Gastrointestinal: normoactive bowel sounds Genitourinary: no bladder fullness Skin: warm Musculoskeletal: No asymmetric calves Neurologic: AAOx3 Psychiatric: interacting appropriately Lymph, Heme, Immunologic: no cervical LAD ICD10 Worksheet Patient Problems: Problems Problem Status Onset Acute renal failure Acute Lupus (systemic lupus erythematosus) Acute
--- NOTE | 2017-08-23 17:14 | ASMTCASEMG ---
Living Arrangements What is your living Answers: With Other (Not Family) arrangement? Who do you live with? Case Management Evaluation Functional: ADL / IADL Answers: Chronic Illness Performance Deficits Due to: Education Needs Answers: Disease Teaching Notes: Lupus and ARF Date Signed: 08/23/2017 05:14 PM Electronically Signed By:RAMESH Tubbs
[2017-08-23 17:16] LABS: HEMATOCRIT 26.7 % (40.0-51.0); HEMOGLOBIN 9.9 g/dL (13.7-17.5)
--- NOTE | 2017-08-23 17:17 | ASMTCMCOM ---
CM Note CM Note Notes: Patient here with a history of lupus and Acute REnal Failure. Patient currently in dialysis three times per week. 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 His family apparently lives in the [facility]. It is uncertain at this time what patients needs will be on discharge. Case management will continue to follow. Date Signed: 08/23/2017 05:17 PM Electronically Signed By:RAMESH Tubbs
[2017-08-23 18:09] LABS: PLATELET COUNT 194 10^3/uL (150-400)
[2017-08-23 20:08] LABS: APTT 23.6 SEC (23.0-38.0); INR 0.91 (0.83-1.16); PROTIME(PATIENT) 12.1 SEC (12.0-15.0)
[2017-08-23] MEDS: amLODIPine BESYLATE 5 MG TAB PO SCH (21:14)
[2017-08-23 21:48] LABS: FIBRINOGEN 415 mg/dL (214-456)
[2017-08-23] MEDS ORDERED: hydrALAZINE 20 MG/ML VIAL IVP PRN (22:52)
[2017-08-24 04:54] LABS: ANION GAP 1 mEq/L (8-16); CALCIUM 7.6 mg/dL (8.5-10.4); CARBON DIOXIDE 31 mEq/l (22-31); CHLORIDE 102 mEq/L (97-110); CREATININE 3.7 mg/dL (0.7-1.3); GLOMERULAR FILTRATION RATE 21; GLUCOSE 84 mg/dL (70-100); POTASSIUM 3.9 mEq/L (3.5-5.2); SODIUM 134 mEq/L (134-144)
[2017-08-24 04:59] VITALS: RESP 16
--- NOTE | 2017-08-24 09:32 | SOAPPROG ---
SOAP Progress Note Assessment/Plan: Assessment: 1. SLE with lupus nephritis 2. severe hypertension 3. anemia, multifactorial. Good response to transfusion. Repeat Direct Rayna is negative, DIC panel looks ok except for mildly elevated D Dimer. Plan:BP per nephrology, continue to monitor cbc, await pending workup, repeat retic count in AM 08/24/17 09:27 Subjective: Nauseated Objective: Vital Signs Temp Pulse Resp BP Pulse Ox 98.6 F 92 16 155/110 H 96 08/24/17 07:42 08/24/17 07:42 08/24/17 07:42 08/24/17 07:42 08/24/17 07:42 Laboratory Results 08/23/17 16:58 08/24/17 04:23 08/23/17 08/24/17 08/25/17 05:59 05:59 05:59 Intake Total 300 Output Total 301 Balance -1 PT 12.1 SEC (12.0-15.0) 08/23/17 16:58 INR 0.91 (0.83-1.16) 08/23/17 16:58 ICD10 Worksheet Patient Problems: Problems Problem Status Onset Acute renal failure Acute Lupus (systemic lupus erythematosus) Acute
[2017-08-24 10:03] LABS: ALBUMIN 2.1 g/dL (3.5-5.0); BILIRUBIN,TOTAL 0.5 mg/dL (0.1-1.4); BILIRUBIN-CONJUGATED 0.3 mg/dL (0.0-0.5); BILIRUBIN-UNCONJUGATED 0.2 mg/dL (0.0-1.1); TOTAL PROTEIN 3.9 g/dL (6.3-8.2)
[2017-08-24] MEDS ORDERED: hydrALAZINE 20 MG/ML VIAL IVP PRN (10:39)
--- NOTE | 2017-08-24 10:40 | SOAPPROG ---
SOAP Progress Note Assessment/Plan: Assessment: ESRD, on HD volume overload nausea Plan: HD today volume removal PUF (ultrafiltration only) tomorrow evaluation for nausea is underway 08/24/17 10:37 Subjective: Seen on HD Tolerating HD without difficulty today primary complaint is nausea, vomited earlier today denies cp sob pain appetite not great Objective: Vital Signs Temp Pulse Resp BP Pulse Ox 37.0 C 92 16 155/110 H 96 08/24/17 07:42 08/24/17 07:42 08/24/17 07:42 08/24/17 07:42 08/24/17 07:42 Laboratory Results 08/23/17 16:58 08/24/17 04:23 08/23/17 08/24/17 08/25/17 05:59 05:59 05:59 Intake Total 300 Output Total 301 Balance -1 PT 12.1 SEC (12.0-15.0) 08/23/17 16:58 INR 0.91 (0.83-1.16) 08/23/17 16:58 Physical Exam - Physical Exam General Appearance: alert, thin Respiratory: rales, No rhonchi, No wheezing Cardiac/Chest: regular rate, rhythm, edema (+2 edema), No friction rub Abdomen: normal bowel sounds, non-tender, soft Extremities: swelling Neuro/Psych: alert, normal mood/affect, oriented x 3 ICD10 Worksheet Patient Problems: Problems Problem Status Onset Acute renal failure Acute Lupus (systemic lupus erythematosus) Acute
[2017-08-24] MEDS ORDERED: SCOPOLAMINE HYDROBROMIDE 1 MG/3 DAYS PATCH TD SCH (10:45)
[2017-08-24] MEDS: amLODIPine BESYLATE 5 MG TAB PO SCH ×3 (12:17→20:30)
[2017-08-24] MEDS: PANTOPRAZOLE SODIUM 40 MG TAB PO SCH (12:17)
[2017-08-24] MEDS: predniSONE 20 MG TAB PO SCH (12:17)
[2017-08-24] MEDS: SULFAMETHOX/TMP 800/160 MG 1 TAB PO SCH (12:17)
[2017-08-24] MEDS: CARVEDILOL 25 MG TAB PO SCH ×2 (12:19→20:26)
[2017-08-24] MEDS: CALCIUM ACETATE 667 MG CAP PO SCH ×4 (12:20→17:14)
[2017-08-24] MEDS: hydrALAZINE 10 MG TAB PO SCH ×3 (12:20→22:12)
[2017-08-24] MEDS ORDERED: HEPARIN 50,000 UNIT/10 ML VIAL ONE (13:19)
--- NOTE | 2017-08-24 16:20 | HOSPPROG ---
Hospitalist Progress Note Assessment/Plan: # Acute severe Anemia - progressive drop in hgb in past several weeks - Hgb 5.6 -> 9.6 this am after 2UPRBC's overnight schistocytes and tear drop cell visualized on smear- last iron sat WNL - reticulocyte count elevated - s/p 2 Units PRBC pt receiving Myfortic in outpt setting- with recent dose increase - Continue Epoetin - awaiting several labs - HEME following - cont holding Myfortic # Lupus Nephritis - requiring HD - EKG (personally reviewed and interpreted) sinus borderline RAD - with no acute STT changes - will receive HD today and x 3 per Nephrology # HTN - uncontrolled - SBP improved overnight now in the 150-160's - oxygen saturation 97% on RA - cont home meds - cont amlodipine BID # Nausea - suspect multifactorial - LFT's normal no abdominal pain - adding scopolamine - cont zofran/phenergan # proph - pt ambulating - holding heparin until anemia better understood # diet - renal # dispo - > 2MN as requiring additional diagnostics and HD I have discussed the case with Hematology- suspecting multifactorial anemia - no transfusion today - await labs Subjective: nausea with vomiting x2 this am Objective: Vital Signs Temp Pulse Resp BP Pulse Ox 36.7 C 94 16 154/93 H 97 08/24/17 15:20 08/24/17 15:20 08/24/17 15:20 08/24/17 15:20 08/24/17 15:20 Laboratory Results 08/23/17 16:58 08/24/17 04:23 08/23/17 08/24/17 08/25/17 05:59 05:59 05:59 Intake Total 300 100 Output Total 301 250 Balance -1 -150 PT 12.1 SEC (12.0-15.0) 08/23/17 16:58 INR 0.91 (0.83-1.16) 08/23/17 16:58 - Physical Exam Constitutional: chronically ill appearing Eyes: anicteric sclera Ears, Nose, Mouth, Throat: dry mucous membranes Cardiovascular: regular rate and rhythym Respiratory: no respiratory distress Gastrointestinal: normoactive bowel sounds Genitourinary: no bladder fullness Skin: normal color Musculoskeletal: No asymmetric calves Neurologic: AAOx3 Psychiatric: depressed, flat affect Lymph, Heme, Immunologic: no cervical LAD ICD10 Worksheet Patient Problems: Problems Problem Status Onset Acute renal failure Acute Lupus (systemic lupus erythematosus) Acute
[2017-08-24 18:52] LABS: MISCELLANEOUS TEST See Comments
[2017-08-24 19:01] LABS: C3 COMPLEMENT COMPONENT 84 mg/dL (75 - 175); C4 COMPLEMENT COMPONENT 29 mg/dL (14 - 40)
[2017-08-24 19:15] LABS: HAPTOGLOBIN SERUM <14 mg/dL (30 - 200)
[2017-08-24] MEDS: HEPARIN 5,000 UNIT/0.5 ML SYR SC SCH (22:12)
[2017-08-25 04:37] VITALS: TEMP 97.9
[2017-08-25 05:08] LABS: HEMATOCRIT 25.6 % (40.0-51.0)
[2017-08-25 05:27] LABS: ANION GAP 6 mEq/L (8-16); CALCIUM 7.7 mg/dL (8.5-10.4); CARBON DIOXIDE 27 mEq/l (22-31); CHLORIDE 101 mEq/L (97-110); CREATININE 3.8 mg/dL (0.7-1.3); GLOMERULAR FILTRATION RATE 20; GLUCOSE 98 mg/dL (70-100); POTASSIUM 4.3 mEq/L (3.5-5.2); SODIUM 134 mEq/L (134-144)
[2017-08-25] MEDS: HEPARIN 5,000 UNIT/0.5 ML SYR SC SCH (06:41)
--- NOTE | 2017-08-25 08:05 | SOAPPROG ---
SOAP Progress Note Assessment/Plan: Assessment: ESRD, on HD volume overload nausea, better today Plan: HD today volume removal evaluation for nausea is underway, may be mycophenolate related 08/24/17 10:37 08/25/17 08:02 Subjective: slept well feeling better today no cp sob nausea or vomiting spirits good energy better after transfusion Objective: Vital Signs Temp Pulse Resp BP Pulse Ox 36.6 C 74 16 144/98 H 96 08/25/17 04:00 08/25/17 04:00 08/25/17 04:00 08/25/17 04:00 08/25/17 04:00 Laboratory Results 08/25/17 04:35 08/25/17 04:35 08/24/17 08/25/17 08/26/17 05:59 05:59 05:59 Intake Total 300 900 Output Total 301 250 Balance -1 650 PT 12.1 SEC (12.0-15.0) 08/23/17 16:58 INR 0.91 (0.83-1.16) 08/23/17 16:58 Physical Exam - Physical Exam General Appearance: alert, thin Respiratory: No rales, No rhonchi, No wheezing Cardiac/Chest: regular rate, rhythm, edema (less edema today), No gallop, No friction rub Abdomen: normal bowel sounds, non-tender, soft Skin: warm/dry Extremities: pedal edema Neuro/Psych: alert, normal mood/affect, oriented x 3 ICD10 Worksheet Patient Problems: Problems Problem Status Onset Acute renal failure Acute Lupus (systemic lupus erythematosus) Acute
[2017-08-25] MEDS: predniSONE 20 MG TAB PO SCH (08:37)
[2017-08-25] MEDS: hydrALAZINE 10 MG TAB PO SCH (08:38)
[2017-08-25] MEDS: PANTOPRAZOLE SODIUM 40 MG TAB PO SCH (08:38)
[2017-08-25] MEDS: CARVEDILOL 25 MG TAB PO SCH (08:39)
[2017-08-25] MEDS: SULFAMETHOX/TMP 800/160 MG 1 TAB PO SCH (08:42)
[2017-08-25] MEDS: amLODIPine BESYLATE 5 MG TAB PO SCH (09:03)
[2017-08-25] MEDS: CALCIUM ACETATE 667 MG CAP PO SCH ×2 (09:43→13:12)
--- NOTE | 2017-08-25 10:27 | SOAPPROG ---
SOAP Progress Note Assessment/Plan: Assessment: 1. SLE with lupus nephritis 2. severe hypertension 3. anemia, multifactorial. Good response to transfusion. Repeat Direct Rayna is negative, DIC panel looks ok except for mildly elevated D Dimer. Haptoglobin low which may indicate some degree of shortened rbc survival, but I do not think he has active hemolysis given normal bilirubin and normal retic count. ADAMST 13 is normal, ruling against TTP Plan:Possibly home, could follow up as outpt, again suspect anemia is multifactorial, if component is drug related may take some time to recover, would continue epo. 08/24/17 09:27 08/25/17 10:22 Objective: Vital Signs Temp Pulse Resp BP Pulse Ox 97.9 F 75 16 162/107 H 96 08/25/17 04:00 08/25/17 08:39 08/25/17 04:00 08/25/17 09:03 08/25/17 04:00 Laboratory Results 08/25/17 04:35 08/25/17 04:35 08/24/17 08/25/17 08/26/17 05:59 05:59 05:59 Intake Total 300 900 Output Total 301 250 Balance -1 650 PT 12.1 SEC (12.0-15.0) 08/23/17 16:58 INR 0.91 (0.83-1.16) 08/23/17 16:58 ICD10 Worksheet Patient Problems: Problems Problem Status Onset Acute renal failure Acute Lupus (systemic lupus erythematosus) Acute
[2017-08-25 11:39] VITALS: BP 136/84; PULSE 76; O2SAT 98
[2017-08-25 12:00] LABS: GLUCOSE-6-PHOS DEHYDROGENASE 11.7 U/g Hb (8.8 - 13.4)
[2017-08-25] MEDS ORDERED: HEPARIN 50,000 UNIT/10 ML VIAL ONE (12:44)
[2017-08-25 14:31] LABS: BETA 2 GLYCOPROTEIN I IGG <9.4 U/mL; BETA 2 GLYCOPROTEIN IGM <9.4 U/mL
[2017-08-25 15:08] LABS: DILUTE RUSSELLS VIPER VENOM 0.8 ratio (0.0 - 1.1); INTERPRETATION See Comments; PT 10.8 sec; PTT 50 sec (26 - 36)
--- NOTE | 2017-08-25 15:08 | ASDISCHSUM ---
Discharge Information Plan Status:Has needs-TBD Medically Cleared to Leave: Discharge Date:08/25/2017 02:57 PM CM D/C Disposition: ADT D/C Disposition:Home, Routine, Self-Care Projected Discharge Date:08/25/2017 02:57 PM Transportation at D/C: Discharge Delay Reason: Follow-Up Date:08/25/2017 02:57 PM Discharge Slot: Final Diagnosis: Placement Information Patient Contact Information Contact Name:RACHAEL Relationship:Mother Address: Work Phone: City: [facility] Phone: State/Zip Code: Email: Financial Information Financial Class: Primary Plan Desc:[employer] Primary Plan Number:[id number] Secondary Plan Desc: Secondary Plan Number: Assessment Information [facility] Initial CM Assessment Living Arrangements What is your living Answers: With Other (Not Family) arrangement? Who do you live with? Case Management Evaluation Functional: ADL / IADL Answers: Chronic Illness Performance Deficits Due to: Education Needs Answers: Disease Teaching Notes: Lupus and ARF Date Signed: 08/23/2017 05:14 PM Electronically Signed By:RAMESH Tubbs [facility] CM Progress Note CM Note CM Note Notes: Patient here with a history of lupus and Acute REnal Failure. Patient currently in dialysis three times per week. 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 His family apparently lives in the [facility]. It is uncertain at this time what patients needs will be on discharge. Case management will continue to follow. Date Signed: 08/23/2017 05:17 PM Electronically Signed By:RAMESH Tubbs [facility] CM Progress Note CM Note CM Note Notes: Pt ready for DC today. Met with pt to determine if he had any unaddressed needs. Pt states he is doing well. He has support of his family though they live 4 hrs away in [facility]. Date Signed: 08/25/2017 03:07 PM Electronically Signed By:Azucena Higuera LCSW Intervention Information Intervention Type:*Incorrect Registration Date of Service:08/23/2017 10:55 AM Patient Type:Observation Staff Member:BOONE Torre, Mehnaz Hours: Discipline: Severity: Comment:
--- NOTE | 2017-08-25 17:08 | GDS ---
[f rep st] DISCHARGE SUMMARY DISCHARGE DIAGNOSES: Include. 1. Severe anemia, thought multifactorial. 2. Lupus nephritis. 3. Hypertension. 4. Nausea. HISTORY OF PRESENT ILLNESS: A 22-year-old male with a history of lupus nephritis recently initiated on hemodialysis, who presents with a hemoglobin of 5.6. For details of the patient's initial present ation, please see the history and physical dated 08/22/2017. CONSULTATIVE SERVICES: Include Nephrology. PROCEDURES: The patient received hemodialysis x2. HOSPITAL COURSE: By issue. 1. Severe anemia. Patient had a slow decrease in his hemoglobin as seen by outpatient Nephrology, w as admitted for evaluation and transfusion. Patient was seen by Hematology/Oncology. As we noted, p eripheral smear findings consistent with positive hemolysis. It is felt after initial labs have retu rned that the patient likely has multifactorial anemia including effects from his CellCept, his nephr itis, his renal disease. The patient received 2 unit blood transfusion, had stable H and H following . He will continue to have his blood counts checked in the outpatient setting and will have followup with Hematology/Oncology in the next 2-4 weeks. The patient did receive a dose of Epoetin which yessy uld be continued in the outpatient setting by Nephrology. 2. Lupus nephritis. Patient is receiving 3 times a week hemodialysis in the outpatient setting. He received 3 runs while inpatient. On the day of disposition, his creatinine is 3.8, and electrolytes improved. Potassium 4.3, calcium 3.3, and phosphorus 2.9. 3. Uncontrolled hypertension. Patient had his blood pressure regimen up titrated with the addition of twice daily Norvasc. He will continue to have his pressures closely monitored in hemodialysis and medications titrated as needed. 4. Severe nausea. Patient was markedly nauseous during the early part of his hospitalization. We d id place a scopolamine patch which had excellent therapeutic fact. We are suspicious that his nausea may be related to the CellCept. He will keep the current patch on for 72 hours. We provided p.r.n. patches post disposition in case the nausea returns. MEDICATIONS AT THE TIME OF DISPOSITION: Please note we have stopped the patient's CellCept. He is t o follow with his outpatient nephrology team. We have added Norvasc and scopolamine. FOLLOWUP APPOINTMENTS: Include with outpatient dialysis tomorrow as well as with Dr. Tiwari from [facility] in the next 2-4 weeks for ongoing monitoring of his anemia. TIME SPENT: I spent greater than 30 minutes in the planning and coordination of this discharge. /[id number]/MODL
[2017-08-26 07:36] LABS: PTT 1:1 NORMAL PLASMA 39 sec (26 - 36); REPTILASE TIME 19 sec (14 - 23); THROMBIN TIME > 300 sec (15 - 23)
[2017-08-26 11:52] LABS: BETA 2 GLYCOPROTEIN IGA <9.4 U/mL
== END 2017-08-25 14:57 | disposition home or self-care (01) | DRG 547 ==
LOC: OBSVTOIN 20:16 → F1N 20:16
PROVIDERS: ADMIT Internal Medicine; ATTEND Hospitalist
DX: M32.14 Glomerular disease in systemic lupus erythematosus (principal); D63.1 Anemia in chronic kidney disease; N18.9 Chronic kidney disease, unspecified; Z99.2 Dependence on renal dialysis; I10 Essential (primary) hypertension; R11.0 Nausea
CPT/HCPCS: 82955-90; 83010-90; 85635-90; 85670-90; 86147-90; 88184-90; 88185-91; J0360; J0885; J1644; J2405; P9016